=== PATIENT | male | born 1990 | race Caucasian/White ===

== ENCOUNTER 2019-07-04 02:19 | Emergency (ER) | payer SELFPAY ==
[2019-07-04 02:27] VITALS: BP 111/72; PULSE 54; RESP 12; TEMP 36.6; O2SAT 98
--- NOTE | 2019-07-04 02:30 | ED_ITS ---
Entered by Rere Byrne, acting as scribe for Lisa Mcknight MD HPI - Male Genitourinary General: Chief complaint: Urogenital-Male Stated complaint: BURNING DURING URINATION Time Seen by Provider: 07/04/19 02:30 Limitations: no limitations History of Present Illness: HPI Narrative: 29 yo m came to the er pov with family for pain with urination. Onset was today. Pt states that everytime when he goes to the bathroom it [place]. Complaint: other (pain with urination ) Onset (ago): day(s) Duration: constant Severity: mild Quality: burning Associated symptoms: Reports dysuria; Deny vomiting Related Data: Sexually active: Yes Review of Systems Const: Denies: fever or chills Eyes: Denies: change in vision ENMT: Denies: throat pain or mouth pain Card: Denies: chest pain Resp: Denies: shortness of breath GI: Denies: vomiting : Reports: painful urination Musc: Denies: back pain or joint pain Skin/Breast: Denies: rash Neuro: Denies: headache Psych: Denies: depression Endo: Denies: excessive urination Murray/Lymph: Denies: easy bruising All/Imm: Denies: hives PFSH ED PFSH: Statuses (acute, chronic, etc) shown below reflect problem list status as previously entered and may not be historically accurate Social History Smoking and tobacco status: never smoked Physical Exam Const: COMMON NORMALS: no apparent distress and healthy appearing HENMT: COMMON NORMALS: normocephalic and external nose normal HEAD & SCALP: normocephalic NOSE: external nose normal and no nasal discharge (nasal dis chage) Eye: COMMON NORMALS: PERRL PUPIL: Yes PERRL Neck/C-Spine: COMMON NORMALS: full ROM and no lymphadenopathy Chest: COMMONS NORMALS: inspection of chest normal Resp: COMMON NORMALS: normal respiratory effort and clear to auscultation bilaterally AUSCULTATION: clear to auscultation bilaterally Cardio: COMMON NORMALS: regular rate and regular rhythm RATE: regular rate RHYTHM: regular rhythm GI: COMMON NORMALS: soft to palpation PALPATION: Yes soft Extremity: COMMON NORMALS: normal to inspection, full ROM and normal capillary refill Psych: COMMON NORMALS: mental status grossly normal and cooperative Skin: COMMON NORMALS: no rashes or lesions noted GENERAL SKIN EXAM: no rashes or lesions noted Course Vital Signs: Vital signs: Vital Signs Temperature 97.9 F 07/04/19 02:27 Pulse Rate 54 L 07/04/19 02:27 Respiratory Rate 12 07/04/19 02:27 Blood Pressure 111/72 07/04/19 02:27 Pulse Oximetry 98 07/04/19 02:27 MDM - Male MDM Narrative: Medical decision making narrative: Patient presents here with dysuria. Patient has no abdominal pain and exam is benign. Patient's UA is clear but will treat with Rocephin and azithromycin for possible STD. Patient is to follow-up with primary care doctor in 3 to 5 days and return if worsening. Lab Data: Labs: Lab Results 07/04/19 Range/Units 02:42 Urine Color Yellow (Yellow) Urine Appearance Clear (CLEAR) Urine pH 5 (5-7) Ur Specific Gravit y 1.015 (1.005-1.030) Urine Protein Neg (Negative) Urine Glucose (UA) Norm (Normal) Urine Ketones Negative (Negative) Urine Occult Blood Neg (Negative) Urine Nitrate Negative (Negative) Urine Bilirubin Neg (NEGATIVE) Urine Urobilinogen Norm (Negative) mg/dL Ur Leukocyte Malissa ase Negative (Negative) Urine RBC 0-4 H (0-2) /hpf Urine WBC None (0-5) /hpf Ur Squamous Epith Cells None (0-5) Ur Transition Epit h Cell None /hpf Urine Bacteria None (NONE) Discharge Plan Discharge Patient Disposition: Home, Self-Care Clinical Impression: Dysuria Condition: Stable Prescriptions: No Action No Known Home Medications RF: 0 Discharge Orders: Discharge Order (Routine); Ordered 07/04/19 Ordered By: Lisa Mcknight Referrals: Carlton Salgado, NEONATAL NURSE-C [Family Provider] - 4-7 days Discharge Diet: Advance as tolerated Discharge Activity: Resume usual activity Patient Instructions: Dysuria (ED) Coding Level of Care Code ED Civil Cad Tech for Chg Fwd Exam Problem Focused The documentation recorded by the Chavez mary Stephanie Lyn, accurately reflects the service I personally performed and the decisions made by Roxanna gaitan Korby, MD Jul 04, 2019 02:19
--- NOTE | 2019-07-04 02:47 | PC.NURSE ---
Pt presents with pain during urination which has been getting progressively worse over the past 3-4 days. NAD, A&O x 4, JOSI.
[2019-07-04 03:07] LABS: Urine Appearance Clear (CLEAR); Urine Color Yellow (Yellow)
[2019-07-04 03:08] LABS: Bilirubin Urine Neg (NEGATIVE); Blood Urine Neg (Negative); Glucose Urine UA Norm (Normal); Ketones Urine Negative (Negative); Leukocyte Esterase Urine Negative (Negative); Nitrate Urine Negative (Negative); Protein Urine Neg (Negative); Specific Gravity, Urine 1.015 (1.005-1.030); Urobilinogen Urine Norm (Negative); pH Urine 5 (5-7)
[2019-07-04 03:09] LABS: Add Urine Culture? No; RBC Urine 0-4 /hpf (0-2)
[2019-07-04 03:51] VITALS: PULSE 56
== END 2019-07-04 03:55 | disposition home or self-care (01) ==
PROVIDERS: Emergency Provider Emergency Medicine; Family Provider Nurse Practitioner
DX: R30.0 Dysuria (principal)
CPT/HCPCS: 81001; 99282

== ENCOUNTER → 2019-07-11 15:48 | Outpatient (BNVA) | payer SELFPAY | PROVIDERS: Family Provider Nurse Practitioner; PCP Family Medicine; Visit Provider Family Medicine | DX: T73.2XXA Exhaustion due to exposure, initial encounter (principal); L60.0 Ingrowing nail | CPT/HCPCS: 84443; 85025; 86308 ==

== ENCOUNTER 2019-07-23 00:33 | Emergency (ER) | payer SELFPAY ==
[2019-07-23 00:41] VITALS: BP 105/63; PULSE 64; RESP 18; TEMP 36.8; O2SAT 98; BMI 27.4
--- NOTE | 2019-07-23 01:04 | XRR_ITS ---
PROCEDURE INFORMATION: Exam: XR Chest, 1 View Exam date and time: 07/23/2019 2:11 AM Age: 29 years old Clinical indication: Cough; Additional info: Patient recently diagnosed with ehrlichiosis, cold symptoms TECHNIQUE: Imaging protocol: XR of the chest Views: 1 view. COMPARISON: No relevant prior studies available. FINDINGS: Lungs: No acute airspace disease. Pleural space: No pleural effusion. Heart/Mediastinum: No cardiomegaly. Bones/joints: Unremarkable. XR/XR chest 1V portable 40024 IMPRESSION: No acute airspace or pleural disease.
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
[2019-07-23] MEDS: doxycycline 100 mg Tablet PO (01:31)
[2019-07-23 02:38] VITALS: PULSE 60; RESP 16; O2SAT 98
== END 2019-07-23 02:39 | disposition home or self-care (01) ==
PROVIDERS: Emergency Provider Nurse Practitioner Family; Family Provider Nurse Practitioner; PCP Family Medicine
DX: A77.40 Ehrlichiosis, unspecified (principal); F17.220 Nicotine dependence, chewing tobacco, uncomplicated
CPT/HCPCS: 71045; 99281

== ENCOUNTER 2019-08-29 13:12 | Emergency (ER) | payer SELFPAY ==
[2019-08-29 13:14] VITALS: BP 96/49; PULSE 56; RESP 16; TEMP 36.7; O2SAT 95; BMI 24.2
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
--- NOTE | 2019-08-29 13:27 | XR_ITS ---
WS: [id number] XR knee LT 3V* [id number] REASON FOR EXAM: trauma FINDINGS: The meniscal spaces are normal. The patella tibial space is normal. The patella femoral articulations normal. No fractures are noted. No excessive swelling. XR/XR knee LT 3V* [id number] IMPRESSION: Negative left knee.
[2019-08-29 13:31] VITALS: O2SAT 99
--- NOTE | 2019-08-29 13:35 | PC.NURSE ---
portable xray at bedside
[2019-08-29] MEDS: HYDROcodone-acetaminophen 5-325 mg Tablet 1 TAB PO (13:43)
--- NOTE | 2019-08-29 14:42 | PC.NURSE ---
pt c/o nausea earlier. nurse in room to administer zofran and pt now denies nausea. zofran not given. Pt does not appear to be in any pain at this time
[2019-08-29 14:43] VITALS: BP 85/60; PULSE 51; O2SAT 98
[2019-08-29 15:00] VITALS: BP 85/50; PULSE 48; O2SAT 98
== END 2019-08-29 15:00 | disposition home or self-care (01) ==
PROVIDERS: Emergency Provider Emergency Medicine; Family Provider Nurse Practitioner; PCP Family Medicine
DX: S29.012A Strain of muscle and tendon of back wall of thorax, initial encounter (principal); S80.02XA Contusion of left knee, initial encounter; F17.220 Nicotine dependence, chewing tobacco, uncomplicated; V49.50XA Passenger injured in collision with unspecified motor vehicles in traffic accident, initial encounter
CPT/HCPCS: 29530; 72128; 73562; 99282; 99283; L1830

== ENCOUNTER 2019-09-27 03:10 | Emergency (ER) | payer SELFPAY ==
[2019-09-27 03:16] VITALS: BP 103/64; PULSE 54; RESP 18; TEMP 36.8; O2SAT 100; BMI 24.2
--- NOTE | 2019-09-27 03:20 | W.ED.MALEGU ---
HPI - Male Genitourinary General: Chief complaint: Urogenital-Male Stated complaint: possible allergic reaction Time Seen by Provider: 09/27/19 03:14 History of Present Illness: HPI Narrative: Mr. Arreola is a 29-year-old male who comes in concerned with dysuria. He states his was recently treated for sexually transmitted disease and he was given a prescription for Flagyl to take but since taking Flagyl he still feels as though he has discomfort when he urinates. Tonight he had sex with his and had pain with ejaculation and intercourse. He states the pain is all on the tip of his penis. He initially had some clear discharge but denies any discharge presently. He denies any fevers, chills, nausea, vomiting, testicular pain, back pain, abdominal pain or otherwise. Associated symptoms: Reports dysuria; Deny hematuria, nausea, urinary incontinence or vomiting Review of Systems General: Reports: other (negative unless marked) Const: Denies: fever, chills, body aches, fatigue, malaise or diaphoresis Eyes: Denies: change in vision or blurry vision ENMT: Denies: throat pain, painful swallowing, hoarseness, ear pain, ear discharge, Change in hearing or nasal discharge Card: Denies: chest pain, palpitations, irregular heart rhythm, syncope, pre-syncope, shortness of breath on exertion or shortness of breath when lying down Resp: Denies: shortness of breath, productive cough, non-productive cough, wheezing, coughing up blood or chest congestion GI: Denies: abdominal pain, nausea, vomiting, vomiting blood, coffee grounds in vomit, diarrhea, constipation, cramping, blood in stool or black tarry stool : Reports: difficulty urinating, painful urination, urinary frequency and urinary urgency; Denies: flank pain, decreased urine ouput, urinary incontinence or blood in urine Musc: Denies: neck pain, back pain, extremity pain, extremity swelling, joint pain, joint swelling, joint warmth or joint stiffness Skin/Breast: Denies: rash, skin tenderness or yellow skin Neuro: Denies: headache, numbness in extremities, weakness in extremities, changes in sensation, lack of coordination, difficulty walking, dizziness, vertigo or confusion Endo: Denies: excessive thirst, tired all the time, cold intolerance, excessive sweating, flushing or hot flashes Murray/Lymph: Denies: easy bruising, easy bleeding, petechiae or enlarged lymph nodes All/Imm: Denies: hives, throat swelling, tongue swelling, facial swelling or acute wheezing PFSH ED PFSH: Social History Smoking and tobacco status: never smoked Quit status (tobacco): not considering quitting Second hand smoke exposure: No Smoking risk assessment/counseling performed?: No Alcohol intake: current Alcohol intake frequency: holidays/special occasions only Desire information about alcohol rehabilitation?: No Counseling given: No Household members: spouse Marital status: Current occupational status: other Details: WAS INCARCERATED IN 2017 Current gender identity: Male Physical Exam Const: COMMON NORMALS: no apparent distress, oriented x3, no limitations, healthy appearing and well nourished EXAM LIMITATIONS: no altered mental status GENERAL APPEARANCE: cooperative, well kempt and well developed ORIENTATION/CONSCIOUSNESS: Yes awake HENMT: COMMON NORMALS: normocephalic, head/scalp atraumatic, hearing grossly normal bilaterally, external ears normal, EAC's normal, external nose normal and moist oral mucous membranes HEAD & SCALP: normal to inspection, normocephalic and atraumatic FACE & SINUS: normal facial exam and face symmetric NOSE: external nose normal and nares normal EXTERNAL EAR: Yes external ears normal EXTERNAL AUDITORY CANAL: EAC's normal MOUTH: oral and palatal mucosa normal and tongue normal Eye: COMMON NORMALS: PERRL, EOMs intact bilaterally, conjunctivae normal and no scleral icterus GENERAL EYE: normal appearance of both eyes and normal light reflex CONJUNCTIVA: Yes conjunctivae normal SCLERA: sclerae normal CORNEA: Yes corneas normal PUPIL: Yes PERRL DIRECT OPHTHALMOSCOPY: Yes normal light reflex Neck/C-Spine: COMMON NORMALS: full ROM, no lymphadenopathy, supple, no meningeal signs and no JVD GENERAL: Yes normal visual inspection and Yes trachea midline CERVICAL SPINE: Yes cervical ROM normal Chest: COMMONS NORMALS: inspection of chest normal and palpation of chest normal Resp: COMMON NORMALS: normal respiratory effort, no retractions, no use of accessory muscles and clear to auscultation bilaterally EFFORT & INSPECTION: Yes able to speak in complete sentences AUSCULTATION: clear to auscultation bilaterally Cardio: COMMON NORMALS: no JVD, regular rate, regular rhythm, S1 normal heart sound, S2 normal heart sound, no gallops, no clicks, no murmurs and no rub JUGULAR VENOUS DISTENTION: no JVD RATE: regular rate RHYTHM: regular rhythm HEART SOUNDS: S1 normal and S2 normal GI: COMMON NORMALS: soft to palpation, non-tender, no hepatosplenomegaly and no masses INSPECTION: Yes normal to inspection PALPATION: Yes soft and Yes no hepatosplenomegaly : COMMON NORMALS: Yes no CVA tenderness BLADDER/KIDNEY EXAM: Yes no CVA tenderness PENIS: normal penis, circumcised, no paraphimosis, no phimosis, no swelling and no ulcerations MEATUS: meatus normal SCROTUM: Yes testes descended bilaterally, Yes cremasteric reflex present, No scrotal swelling, No lesions and No scrotal mass TESTES: Yes testicular lie normal, No testicular tenderness and No testicular mass Back/Pelvis: COMMON NORMALS: no CVA tenderness, thoracic and lumbar spine normal to inspection, no thoracic nor lumbar tenderness and thoraco-lumbar ROM normal Extremity: COMMON NORMALS: normal to inspection, full ROM, normal capillary refill, no joint enlargement, no clubbing, cyanosis or edema and no calf tenderness Neuro: COMMON NORMALS: oriented x3, CN's II-XII intact bilaterally, moves all extremities, no focal motor deficits and no sensory deficits noted MENINGEAL SIGNS: Yes no meningeal signs Psych: COMMON NORMALS: mental status grossly normal, thought process normal, cooperative, affect normal, speech normal and activity/motor behavior normal APPEARANCE: Yes well kempt SPEECH: Yes normal speech THOUGHT PROCESS: normal thought process Skin: COMMON NORMALS: no rashes or lesions noted, skin turgor normal, no jaundice, no petechiae and no mottling GENERAL SKIN EXAM: no rashes or lesions noted and turgor normal Course Vital Signs: Vital signs: Vital Signs Temperature 98.3 F 09/27/19 03:16 Pulse Rate 54 L 09/27/19 03:16 Respiratory Rate 18 09/27/19 03:16 Blood Pressure 103/64 09/27/19 03:16 Pulse Oximetry 100 09/27/19 03:16 MDM - Male MDM Narrative: Medical decision making narrative: Silviano is a nice 29-year-old male who comes in with probable STD exposure. I will treat him. We for gonorrhea and chlamydia and it sounds that he has been treated empirically for trichomonas. The patient will be called if he has a positive test. Currently these are all send outs will take a day to get results for. He agrees to return should his symptoms change or worsen. At this time he has no abdominal pain or vomiting. Lab Data: Attestation: I reviewed the patient's lab results. Labs: Lab Results 09/27/19 09/27/19 09/27/19 Range/Units 03:30 03:30 03:45 WBC 7.3 (4.0-10.0) 10^3/ uL RBC 4.14 (4.1-5.3) 10^6/u L Hgb 11.9 (11.7-16.6) g/dL Hct 37.4 L (42.0-52.0) % MCV 90.3 (80-94) fL MCH 28.7 (28.0-34.0) pg MCHC 31.8 (30.0-36.0) g/dL RDW 13.6 (12.1-15.1) % Plt Count 353 (130-400) 10^3/c mm MPV 10.5 H (7.4-10.4) fL Neut % (Auto) 57.8 % Lymph % (Auto) 33.7 % [place] % (Auto) 6.8 % Eos % (Auto) 1.2 % Baso % (Auto) 0.4 % Neut # (Auto) 4.2 (1.8-7.7) 10^3/u L Lymph # (Auto) 2.5 (0.8-4.8) 10^3/u L [place] # (Auto) 0.5 (0.2-0.9) 10^3/u L Eos # (Auto) 0.1 (0.0-0.8) 10^3/u L Baso # (Auto) 0.0 (0.0-0.1) 10^3/u L Nucleated RBC % (a uto) 0 % Nucleated RBCs # 0.0 /100WBC Sodium 141 (136-145) mmol/L Potassium 4.1 (3.5-5.1) mmol/L Chloride 105 (98-107) mmol/L Carbon Dioxide 27 (22-29) mmol/L Anion Gap 13.1 (5-19) BUN 11 (6-20) mg/dL Creatinine 0.8 (0.7-1.2) mg/dL GFR Calculation 116.0 (90-130) mL/min Glucose 93 (65-115) mg/dL Calculated Osmolal ity 288 (285-295) mOsm/k g Calcium 9.9 (8.5-10.5) mg/dL Total Bilirubin 0.5 (0.15-1.2) mg/dL AST 21 (0-40) U/L ALT 20 (0-41) U/L Alkaline Phosphata se 108 (40-130) IU/L Total Protein 7.4 (6.6-8.7) g/dL Albumin 4.5 (3.5-5.2) g/dL Globulin 2.9 (1.3-4.6) g/dL Urine Color Yellow (Yellow) Urine Appearance Hazy A (CLEAR) Urine pH 7 (5-7) Ur Specific Gravit y 1.015 (1.005-1.030) Urine Protein Neg (Negative) Urine Glucose (UA) Norm (Normal) Urine Ketones Negative (Negative) Urine Blood Neg (Negative) Urine Nitrate Negative (Negative) Urine Bilirubin Neg (NEGATIVE) Urine Urobilinogen 1 H (Negative) mg/dL Ur Leukocyte Malissa ase Negative (Negative) Urine RBC 0-4 H (0-2) /hpf Urine WBC None (0-5) /hpf Ur Squamous Epith Cells 0-4 H (0-5) Amorphous Sediment 1+ Urine Bacteria Trace (NONE) Discharge Plan Discharge Patient Disposition: Home, Self-Care Clinical Impression: Dysuria Condition: Stable Discharge Orders: Discharge Order (Routine); Ordered 09/27/19 Ordered By: Reyna Rodas Referrals: Carlton Salgado FNP-C [Family Provider] - 1-3 days Mercedes Thrasher MD [Primary Care Provider] - Discharge Diet: Advance as tolerated Discharge Activity: Increase activity as tolerated Patient Instructions: Sexually Transmitted Diseases (ED) Activity Restrictions/Additional Instructions: Please return to the ER immediately for any of the signs or symptoms listed on your discharge instruction sheets, worsening/changing of your symptoms, you are not getting better as quickly as expected, or for ANY other cause or concerns. You will be notified by phone if any of your test results are positive. Coding Level of Care Code ED Trauma Program Manager for Chg Fwd Exam Comprehensive
[2019-09-27 03:54] LABS: Alanine Aminotransferase 20 U/L (0-41); Albumin Level 4.5 g/dL (3.5-5.2); Alkaline Phosphatase 108 IU/L (40-130); Anion Gap 13.1 (5-19); Aspartate Amino Transferase 21 U/L (0-40); Blood Urea Nitrogen 11 mg/dL (6-20); Calcium 9.9 mg/dL (8.5-10.5); Carbon Dioxide 27 mmol/L (22-29); Chloride 105 mmol/L (98-107); Globulin 2.9 g/dL (1.3-4.6); Glucose 93 mg/dL (65-115); Osmolality Calculated 288 mOsm/kg (285-295); Potassium 4.1 mmol/L (3.5-5.1); Sodium 141 mmol/L (136-145); Total Bilirubin 0.5 mg/dL (0.15-1.2); Total Protein 7.4 g/dL (6.6-8.7)
[2019-09-27 04:09] LABS: Basophils % 0.4 %; Eosinophils # 0.1 10^3/uL (0.0-0.8); Eosinophils % 1.2 %; Hematocrit 37.4 % (42.0-52.0); Hemoglobin 11.9 g/dL (11.7-16.6); Lymphocytes # 2.5 10^3/uL (0.8-4.8); Lymphocytes % 33.7 %; Mean Corpuscular HGB Conc 31.8 g/dL (30.0-36.0); Mean Corpuscular Hemoglobin 28.7 pg (28.0-34.0); Mean Corpuscular Volume 90.3 fL (80-94); Mean Platelet Volume 10.5 fL (7.4-10.4); Monocytes # 0.5 10^3/uL (0.2-0.9); Monocytes % 6.8 %; Neutrophils # 4.2 10^3/uL (1.8-7.7); Neutrophils % 57.8 %; Nucleated Red Blood Cells % 0 %; Platelet Count 353 10^3/cmm (130-400); Red Blood Count 4.14 10^6/uL (4.1-5.3); Red Cell Distribution Width 13.6 % (12.1-15.1); White Blood Count 7.3 10^3/uL (4.0-10.0)
[2019-09-27 04:12] LABS: Bilirubin Urine Neg (NEGATIVE); Blood Urine Neg (Negative); Glucose Urine UA Norm (Normal); Ketones Urine Negative (Negative); Leukocyte Esterase Urine Negative (Negative); Nitrate Urine Negative (Negative); Protein Urine Neg (Negative); Specific Gravity, Urine 1.015 (1.005-1.030); Urine Appearance Hazy (CLEAR); Urine Color Yellow (Yellow); Urobilinogen Urine 1 mg/dL (Negative); pH Urine 7 (5-7)
[2019-09-27 04:13] LABS: Amorphous Sediment Urine 1+
[2019-09-27 04:14] LABS: Add Urine Culture? No; Bacteria Urine TRACE; RBC Urine 0-4 /hpf (0-2); Squamous Epithelial Cell Urine 0-4 (0-5)
--- NOTE | 2019-09-27 05:32 | PC.NURSE ---
went to d/c pt and give injections and pt could not be found anywhere on property. pt left without all his treatments and without d/c instructions.
== END 2019-09-27 05:37 | disposition home or self-care (01) ==
PROVIDERS: Emergency Provider Emergency Medicine; Family Provider Nurse Practitioner; PCP Family Medicine
DX: R30.0 Dysuria (principal); Z20.2 Contact with and (suspected) exposure to infections with a predominantly sexual mode of transmission
CPT/HCPCS: 12345; 36415; 80053; 81001; 85025; 87491; 87591; 99282

== ENCOUNTER 2019-10-08 08:27 | Emergency (ER) | payer SELFPAY ==
[2019-10-08 08:32] VITALS: BP 105/58; PULSE 67; RESP 17; TEMP 36.6; O2SAT 97; BMI 25.0
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
[2019-10-08 09:15] VITALS: BP 104/60; PULSE 67; RESP 18; O2SAT 67
== END 2019-10-08 09:17 | disposition home or self-care (01) ==
PROVIDERS: Emergency Provider Physician Assistant; Family Provider Nurse Practitioner; PCP Family Medicine
DX: M25.562 Pain in left knee (principal)
CPT/HCPCS: 12345; 99281; 99283

== ENCOUNTER 2019-10-11 00:09 | Emergency (ER) | payer SELFPAY ==
[2019-10-11 00:10] VITALS: BP 100/73; PULSE 68; RESP 14; TEMP 36.8; O2SAT 98; BMI 28.3
--- NOTE | 2019-10-11 00:13 | W.ED.OVERDOS ---
HPI - Overdose General: Chief Complaint: Overdose Stated Complaint: POSSIBLE OD Time Seen by Provider: 10/11/19 00:11 Source: patient and EMS Mode of arrival: EMS Limitations: no limitations History of Present Illness: HPI Narrative: Patient's called EMS because she is concerned he may of overdose. Patient taken to 20 mg trazodone tablets tonight to help him sleep and also took he states 1-2 Flexeril. She was concerned as he was very somnolent. Patient here is able to wake up and answer all my questions appropriately but states he feels very tired. He has no other complaints besides that at this time. Review of Systems Const: Denies: fever, chills, body aches or change in appetite Eyes: Denies: blurry vision or eye discomfort ENMT: Denies: throat pain or dental pain Card: Denies: chest pain Resp: Denies: shortness of breath GI: Denies: abdominal pain, nausea, vomiting or diarrhea : Denies: painful urination Musc: Denies: neck pain or back pain Skin/Breast: Denies: rash Neuro: Denies: headache Psych: Denies: depression Murray/Lymph: Denies: easy bruising All/Imm: Denies: hives PFSH ED PFSH: Social History Smoking and tobacco status: never smoked Quit status (tobacco): not considering quitting Second hand smoke exposure: No Smoking risk assessment/counseling performed?: No Alcohol intake: current Alcohol intake frequency: holidays/special occasions only Desire information about alcohol rehabilitation?: No Counseling given: No Household members: spouse Marital status: Current occupational status: other Details: WAS INCARCERATED IN 2017 Current gender identity: Male Physical Exam Const: COMMON NORMALS: no apparent distress, oriented x3 and healthy appearing HENMT: COMMON NORMALS: normocephalic and head/scalp atraumatic HEAD & SCALP: normocephalic and atraumatic Eye: COMMON NORMALS: PERRL and EOMs intact bilaterally PUPIL: Yes PERRL Neck/C-Spine: COMMON NORMALS: full ROM and supple Chest: COMMONS NORMALS: inspection of chest normal and palpation of chest normal Resp: COMMON NORMALS: normal respiratory effort, no retractions, no use of accessory muscles and clear to auscultation bilaterally AUSCULTATION: clear to auscultation bilaterally Cardio: COMMON NORMALS: regular rate, regular rhythm and no murmurs RATE: regular rate RHYTHM: regular rhythm GI: COMMON NORMALS: normal to inspection, nondistended, normoactive bowel sounds, soft to palpation, non-tender and no masses PALPATION: Yes soft Extremity: COMMON NORMALS: normal to inspection and full ROM Neuro: COMMON NORMALS: oriented x3, moves all extremities and no focal motor deficits Psych: COMMON NORMALS: mental status grossly normal, thought process normal and cooperative THOUGHT PROCESS: normal thought process Skin: COMMON NORMALS: no rashes or lesions noted and no wounds GENERAL SKIN EXAM: no rashes or lesions noted Course Vital Signs: Vital signs: Vital Signs Temperature 98.2 F 10/11/19 00:10 Pulse Rate 68 10/11/19 00:10 Respiratory Rate 14 10/11/19 00:10 Blood Pressure 100/73 10/11/19 00:10 Pulse Oximetry 98 10/11/19 00:10 MDM - Overdose MDM Narrative: Medical decision making narrative: Patient presents with an accidental overdose. He had no suicidal ideations and was just trying to take medicine for pain for his knee. Patient eloped and nurse noticed when he had went back to do the EKG. I was unable to speak to the patient before he eloped. Patient's was in the driveway and nurses spoke to her and she was driving back home with him. Nurse did inform her if he has any worsening symptoms to return. Lab Data: Labs: Lab Results 10/11/19 10/11/19 Range/Units 00: 00:20 WBC 5.9 (4.0-10.0) 10^3/ uL RBC 4.11 (4.1-5.3) 10^6/u L Hgb 11.8 (11.7-16.6) g/dL Hct 37.4 L (42.0-52.0) % MCV 91.0 (80-94) fL MCH 28.7 (28.0-34.0) pg MCHC 31.6 (30.0-36.0) g/dL RDW 13.5 (12.1-15.1) % Plt Count 266 (130-400) 10^3/c mm MPV 10.4 (7.4-10.4) fL Neut % (Auto) 63.9 % Lymph % (Auto) 28.8 % [place] % (Auto) 4.9 % Eos % (Auto) 2.0 % Baso % (Auto) 0.2 % Neut # (Auto) 3.8 (1.8-7.7) 10^3/u L Lymph # (Auto) 1.7 (0.8-4.8) 10^3/u L [place] # (Auto) 0.3 (0.2-0.9) 10^3/u L Eos # (Auto) 0.1 (0.0-0.8) 10^3/u L Baso # (Auto) 0.0 (0.0-0.1) 10^3/u L Nucleated RBC % (a uto) 0 % Nucleated RBCs # 0.0 /100WBC Sodium 140 (136-145) mmol/L Potassium 4.2 (3.5-5.1) mmol/L Chloride 102 (98-107) mmol/L Carbon Dioxide 27 (22-29) mmol/L Anion Gap 15.2 (5-19) BUN 12 (6-20) mg/dL Creatinine 0.8 (0.7-1.2) mg/dL GFR Calculation 116.0 (90-130) mL/min Glucose 87 (65-115) mg/dL Calculated Osmolal ity 285 (285-295) mOsm/k g Calcium 9.5 (8.5-10.5) mg/dL Total Bilirubin 0.5 (0.15-1.2) mg/dL AST 18 (0-40) U/L ALT 14 (0-41) U/L Alkaline Phosphata se 93 (40-130) IU/L Total Protein 7.0 (6.6-8.7) g/dL Albumin 4.1 (3.5-5.2) g/dL Globulin 2.9 (1.3-4.6) g/dL Salicylates 1.0 L (3-10) mg/dL Acetaminophen < 5.0 L (10-30) ug/mL Ethyl Alcohol < 10 (0-10) mg/dL Discharge Plan Discharge Patient Disposition: Home, Self-Care Clinical Impression: Drug overdose Qualifiers: Encounter type: initial encounter Injury intent: accidental or unintentional Qualified Code(s): T50.901A - Poisoning by unspecified drugs, medicaments and biological substances, accidental (unintentional), initial encounter Condition: Stable Referrals: Carlton Salgado, AGRICULTURAL EQUIPMENT DESIGN ENGINEER-C [Family Provider] - Mercedes Thrasher MD [Primary Care Provider] - Discharge Date/Time: 10/11/19 01:09 Coding Level of Care Code ED Podiatrist for Chg Fwd Exam Comprehensive
[2019-10-11 00:29] LABS: Basophils % 0.2 %; Eosinophils # 0.1 10^3/uL (0.0-0.8); Hematocrit 37.4 % (42.0-52.0); Hemoglobin 11.8 g/dL (11.7-16.6); Lymphocytes # 1.7 10^3/uL (0.8-4.8); Lymphocytes % 28.8 %; Mean Corpuscular HGB Conc 31.6 g/dL (30.0-36.0); Mean Corpuscular Hemoglobin 28.7 pg (28.0-34.0); Mean Platelet Volume 10.4 fL (7.4-10.4); Monocytes # 0.3 10^3/uL (0.2-0.9); Monocytes % 4.9 %; Neutrophils # 3.8 10^3/uL (1.8-7.7); Neutrophils % 63.9 %; Nucleated Red Blood Cells % 0 %; Platelet Count 266 10^3/cmm (130-400); Red Blood Count 4.11 10^6/uL (4.1-5.3); Red Cell Distribution Width 13.5 % (12.1-15.1); White Blood Count 5.9 10^3/uL (4.0-10.0)
[2019-10-11 00:43] LABS: Alanine Aminotransferase 14 U/L (0-41); Albumin Level 4.1 g/dL (3.5-5.2); Alkaline Phosphatase 93 IU/L (40-130); Anion Gap 15.2 (5-19); Aspartate Amino Transferase 18 U/L (0-40); Blood Urea Nitrogen 12 mg/dL (6-20); Calcium 9.5 mg/dL (8.5-10.5); Carbon Dioxide 27 mmol/L (22-29); Chloride 102 mmol/L (98-107); Globulin 2.9 g/dL (1.3-4.6); Glucose 87 mg/dL (65-115); Osmolality Calculated 285 mOsm/kg (285-295); Potassium 4.2 mmol/L (3.5-5.1); Sodium 140 mmol/L (136-145); Total Bilirubin 0.5 mg/dL (0.15-1.2)
[2019-10-11 00:44] LABS: Acetaminophen < 5.0 ug/mL (10-30); Alcohol Level < 10 mg/dL (0-10)
[2019-10-11] MEDS: sodium chloride 0.9% 1,000 ML 999 ML IV (00:48)
--- NOTE | 2019-10-12 14:23 | DCPLANNER ---
grounds manager called patient to check on patient after recent ER visit. Unable to speak with patient at this time, a voicemail was left for patient to return pillowcase maker phone call.
== END 2019-10-11 01:09 | disposition home or self-care (01) ==
PROVIDERS: Emergency Provider Emergency Medicine; Family Provider Nurse Practitioner; PCP Family Medicine
DX: T43.211A Poisoning by selective serotonin and norepinephrine reuptake inhibitors, accidental (unintentional), initial encounter (principal); T48.1X1A Poisoning by skeletal muscle relaxants [neuromuscular blocking agents], accidental (unintentional), initial encounter; Z53.21 Procedure and treatment not carried out due to patient leaving prior to being seen by health care provider
CPT/HCPCS: 12345; 80053; 80307; 85025; 96360; 99282; 99283; J7030

== ENCOUNTER 2019-12-07 23:09 | Emergency (ER) | payer SELFPAY ==
[2019-12-07 23:20] VITALS: BP 101/64; PULSE 65; RESP 14; TEMP 36.6; O2SAT 99; BMI 22.8
== END 2019-12-08 00:21 | disposition left against medical advice (07) ==
PROVIDERS: Emergency Provider Emergency Medicine; PCP Family Medicine
DX: Z53.21 Procedure and treatment not carried out due to patient leaving prior to being seen by health care provider (principal)
CPT/HCPCS: 99281

== ENCOUNTER 2020-01-27 21:39 | Emergency (ER) | payer SELFPAY ==
[2020-01-27 21:43] VITALS: BP 94/56; PULSE 70; RESP 17; TEMP 36.5; O2SAT 99; BMI 23.1
--- NOTE | 2020-01-27 21:51 | ED_ITS ---
HPI - Allergic Reaction General: Chief complaint: Allergic Reaction Stated complaint: facial swelling Time Seen by Provider: 01/27/20 21:51 History of Present Illness: HPI narrative: Patient is a 29-year-old male who comes to the ED with facial swelling. Patient says that yesterday he ate some peanut butter and today when he woke up he had right-sided facial swelling. He has taken 2 doses of Benadryl today to help with swelling and no improvement. Swelling is located in the right maxillary region of the jaw and tender to palpation. Associated symptoms: Reports facial swelling (right sided facial swelling); Deny abdominal pain, nausea, tongue swelling or vomiting Review of Systems Const: Denies: fever(s), chills or fatigue Eyes: Denies: change in vision or eye discomfort ENMT: Reports: mouth pain (right maxillary jaw tenderness ); Denies: throat pain, odynophagia, nasal discharge or nasal congestion Card: Denies: chest pain, palpitations, edema, swelling of feet/ankles, dyspnea on exertion or orthopnea Resp: Denies: dyspnea, productive cough or non-productive cough GI: Denies: abdominal pain, nausea, vomiting, diarrhea, constipation or hematochezia : Denies: flank pain, difficulty urinating, dysuria or hematuria Musc: Denies: neck pain, back pain or extremity swelling Skin/Breast: Denies: rash or new lesions Neuro: Denies: headache(s), numbness in extremities or weakness in extremities All/Imm: Reports: facial swelling (right sided facial swelling); Denies: throat swelling, tongue swelling or acute wheezing PFSH ED PFSH: Social History Smoking and tobacco status: light tobacco smoker smokeless tobacco Smokeless tobacco user: chewing tobacco Quit status (tobacco): not considering quitting Second hand smoke exposure: No Smoking risk assessment/counseling performed?: No Alcohol intake: current Alcohol intake frequency: holidays/special occasions only Desire information about alcohol rehabilitation?: No Counseling given: No Household members: spouse Marital status: Current occupational status: other Details: WAS INCARCERATED IN 2017 Current gender identity: Male Physical Exam Const: COMMON NORMALS: patient oriented x3 HENMT: COMMON NORMALS: normocephalic HEAD & SCALP: normocephalic FACE & SINUS: Facial tenderness on exam of face and sinuses on the right (Patient has swelling on right maxillary jaw region with warmth and tenderness to palpation.) maxilla (Right side) MOUTH: Normal oral and palatal mucosa present TEETH & GINGIVA: Yes caries, Yes gingiva abnormal edematous (right upper maxillary jaw around teeth 1-3) and diffusely erythematous (right upper maxillary jaw around teeth 1-3) and Yes poor dentition THROAT: posterior oropharynx normal and uvula midline Neck/C-Spine: COMMON NORMALS: supple GENERAL: Yes normal visual inspection Resp: COMMON NORMALS: normal respiratory effort, No retractions, No use of accessory muscles and clear to auscultation bilaterally AUSCULTATION: clear to auscultation bilaterally Cardio: COMMON NORMALS: regular rate, regular rhythm, S1 normal heart sound present, S2 normal heart sound present, No gallops present (Cardio), No clicks present (Cardio), No murmurs present (Cardio) and Peripheral pulses 2+ throughout RATE: regular rate RHYTHM: regular rhythm HEART SOUNDS: S1 normal heart sound present and S2 normal heart sound present PERIPHERAL PULSES: Peripheral pulses 2+ throughout GI: COMMON NORMALS: Normal to inspection, nondistended, normoactive bowel sounds present, Soft to palpation, non-tender and no masses PALPATION: Yes Soft to palpation : COMMON NORMALS: Yes no CVA tenderness BLADDER/KIDNEY EXAM: Yes no CVA tenderness Back/Pelvis: COMMON NORMALS: no CVA tenderness Extremity: COMMON NORMALS: normal to inspection Neuro: COMMON NORMALS: patient oriented x3 and moves all extremities Skin: COMMON NORMALS: no rashes or lesions noted GENERAL SKIN EXAM: no mauro hes or lesions noted and dry skin Course Vital Signs: Vital signs: Vital Signs Temperature 97.7 F 01/27/20 21:43 Pulse Rate 54 L 01/27/20 22:25 Respiratory Rate 16 01/27/20 22:25 Blood Pressure 103/42 01/27/20 22:25 Pulse Oximetry 99 01/27/20 22:25 MDM - Allergic Reaction MDM Narrative: Medical decision making narrative: Patient is a 29-year-old male who comes to the ED with right maxillary face swelling and tenderness. Denies any shortness of breath, throat swelling, tongue swelling. Exam shows multiple dental caries and upper right maxillary gingival edema and erythema. patient was given a prescription of prednisone to help with the swelling and clindamycin for the infection. Follow-up with PCP in 5 to 7 days for reevalu ation. Return to ED precautions given. Patient understood and agreed with plan. Discharge Plan Discharge Patient Disposition: Home Clinical Impression: Mouth swelling, Dental caries Condition: Stable Prescriptions: New clindamycin HCl 150 mg capsule 300 mg PO Q6H 7 Days Qty: 56 RF: 0 prednisone 20 mg tablet 20 mg PO BID 5 Days Qty: 10 RF: 0 No Action No Known Home Medications RF: 0 Discharge Orders: Discharge Order (Routine); Ordered 01/27/20 Ordered By: Haja Martínez Discharge Diet: Regular Discharge Activity: Resume usual activity Patient Instructions: Dental Caries (ED) Activity Restrictions/Additional Instructions: Follow-up with medical provider as directed in 5-7 days. Take medications as prescribed. Return to the ER or your medical provider if condition worsens. Please read and understand discharge instructions. If any questions, please ask. Discharge Date/Time: 01/27/20 22:30 Coding Level of Care Code ED Sales Developer for Aman Siddiqi Exam Comprehensive
[2020-01-27] MEDS: predniSONE 20 mg Tablet 60 MG PO (22:22)
[2020-01-27] MEDS: clindamycin 150 mg Capsule 300 MG PO (22:22)
[2020-01-27 22:25] VITALS: BP 103/42; PULSE 54; RESP 16; O2SAT 99
== END 2020-01-27 22:30 | disposition home or self-care (01) ==
PROVIDERS: Emergency Provider Physician Assistant
DX: K02.9 Dental caries, unspecified (principal); F17.210 Nicotine dependence, cigarettes, uncomplicated
CPT/HCPCS: 12345; 99281; 99283; J7512

== ENCOUNTER 2020-04-19 01:12 | Emergency (ER) | payer SELFPAY ==
[2020-04-19 01:19] VITALS: BP 90/56; PULSE 52; RESP 17; TEMP 36.4; O2SAT 99; BMI 23.8
--- NOTE | 2020-04-19 01:26 | XRR_ITS ---
PROCEDURE INFORMATION: Exam: XR Chest, 1 View Exam date and time: 04/19/2020 1:44 AM Age: 30 years old Clinical indication: Cough; Additional info: Cough, sore throat TECHNIQUE: Imaging protocol: XR of the chest Views: 1 view. COMPARISON: CR XR chest 1V portable [id number] 07/23/2019 2:01 AM FINDINGS: Lungs: Unremarkable. No consolidation. Pleural space: Unremarkable. No pleural effusion. No pneumothorax. Heart/Mediastinum: Unremarkable. No cardiomegaly. Bones/joints: Unremarkable. XR/XR chest 1V portable [id number] IMPRESSION: No acute findings.
--- NOTE | 2020-04-19 01:30 | ED_ITS ---
HPI - General Adult General: Chief complaint: General Medical Stated complaint: cough/sore throat Time Seen by Provider: 04/19/20 01:27 Source: patient Mode of arrival: ambulatory Limitations: no limitations History of Present Illness: HPI narrative: 30-year-old male who states that over the last 3 days has had sore throat along with cough. States throat pain is sharp in nature and is worse when he is coughing. States his cough is dry in nature. Denies any fever shortness of breath. Denies any worsening or improving factors. He is nasal drainage as well and sinus drainage. Denies any known sick contacts. Associated symptoms: Deny chest pain, headache(s), nausea, rash or vomiting Review of Systems Const: Denies: fever(s), chills, body aches or change in appetite Eyes: Denies: blurry vision or eye discomfort ENMT: Reports: throat pain Card: Denies: chest pain Resp: Reports: non-productive cough GI: Denies: abdominal pain, nausea, vomiting or diarrhea : Denies: dysuria Musc: Denies: neck pain or back pain Skin/Breast: Denies: rash Neuro: Denies: headache(s) Psych: Denies: depression Murray/Lymph: Denies: easy bruising All/Imm: Denies: urticaria PFSH ED PFSH: Social History Smoking and tobacco status: light tobacco smoker smokeless tobacco Smokeless tobacco user: chewing tobacco Quit status (tobacco): not considering quitting Second hand smoke exposure: No Smoking risk assessment/counseling performed?: No Alcohol intake: current Alcohol intake frequency: holidays/special occasions only Desire information about alcohol rehabilitation?: No Counseling given: No Household members: spouse Marital status: Current occupational status: other Details: WAS INCARCERATED IN 2017 Current gender identity: Male Physical Exam Const: COMMON NORMALS: no acute distress, patient oriented x3 and healthy appearing HENMT: COMMON NORMALS: normocephalic and atraumatic HEAD & SCALP: normocephalic and atraumatic Eye: COMMON NORMALS: Equal, round and reactive pupils present and EOMs intact bilaterally PUPIL: Yes Equal, round and reactive pupils present Neck/C-Spine: COMMON NORMALS: full ROM and supple Chest: COMMONS NORMALS: normal inspection of the chest and normal palpation of entire chest wall Resp: COMMON NORMALS: normal respiratory effort, No retractions, No use of accessory muscles and clear to auscultation bilaterally AUSCULTATION: clear to auscultation bilaterally Cardio: COMMON NORMALS: regular rate, regular rhythm and No murmurs present (Cardio) RATE: regular rate RHYTHM: regular rhythm GI: COMMON NORMALS: Normal to inspection, nondistended, normoactive bowel sounds present, Soft to palpation, non-tender and no masses PALPATION: Yes Soft to palpation Extremity: COMMON NORMALS: normal to inspection and full ROM Neuro: COMMON NORMALS: patient oriented x3, moves all extremities and no focal motor deficits Psych: COMMON NORMALS: mental status grossly normal, Normal thought process present and cooperative THOUGHT PROCESS: Normal thought process present Skin: COMMON NORMALS: no rashes or lesions noted and no wounds GENERAL SKIN EXAM: no rashes or lesions noted Course Vital Signs: Vital signs: Vital Signs Temperature 97.6 F 04/19/20 01:19 Pulse Rate 52 L 04/19/20 01:19 Respiratory Rate 17 04/19/20 01:19 Blood Pressure 90/56 04/19/20 01:19 Pulse Oximetry 99 04/19/20 01:19 MDM - General Adult MDM Narrative: Medical decision making narrative: Tanna presents with cough along with sore throat is likely viral in origin. His exam here is benign he has no signs of strep throat or peritonsillar or retropharyngeal abscess. Patient chest x-ray is negative. Patient given Decadron here will prescribe Naprosyn for home. He is stable for discharge. We will test him for Covid as well. Imaging Data^: CXR: Attestation: I personally reviewed and interpreted this imaging study as follows: My impression: no acute abnormality Discharge Plan Discharge Patient Disposition: Home Clinical Impression: Sore throat Upper respiratory infection Qualifiers: URI type: unspecified URI Qualified Code(s): J06.9 - Acute upper respiratory infection, unspecified Condition: Stable Prescriptions: No Action No Known Home Medications RF: 0 Discharge Orders: Discharge Order (Routine); Ordered 04/19/20 Ordered By: Lisa Mcknight Discharge Diet: Advance as tolerated Discharge Activity: Resume usual activity Patient Instructions: Strep Throat (ED) Coding Level of Care Code ED Cooker Chip for Chg Fwd Exam Comprehensive
[2020-04-19] MEDS: ketorolac 60 mg/2 mL INJ IM (02:17)
[2020-04-19] MEDS: dexamethasone 10 mg/mL INJ IM (02:17)
[2020-04-19 02:18] VITALS: BP 136/82; PULSE 76; RESP 16; O2SAT 99
[2020-04-20 18:53] LABS: Quest SARS-CoV-2 RNA NOT DETECTED (NOT DETECTED)
--- NOTE | 2020-04-21 09:07 | PC.NURSE ---
Pt called and notified of negative COVID result.
== END 2020-04-19 02:19 | disposition home or self-care (01) ==
PROVIDERS: Emergency Provider Emergency Medicine
DX: J06.9 Acute upper respiratory infection, unspecified (principal); J02.9 Acute pharyngitis, unspecified; F17.220 Nicotine dependence, chewing tobacco, uncomplicated
CPT/HCPCS: 12345; 71045; 87635; 96372; 99281; 99283; J1100; J1885

== ENCOUNTER 2020-04-29 21:08 | Emergency (ER) | payer SELFPAY ==
[2020-04-29 21:22] VITALS: BP 98/63; PULSE 55; RESP 18; TEMP 36.5; O2SAT 99; BMI 23.4
--- NOTE | 2020-04-29 21:33 | W.ED.DENTAL ---
HPI - Dental/Oral General: Chief complaint: Dental/Oral Stated complaint: Jaw Pain Time Seen by Provider: 04/29/20 21:27 Source: patient Mode of arrival: ambulatory Limitations: no limitations History of Present Illness: HPI Narrative: 30-year-old male states he has had left-sided dental pain over the last 3 to 4 days. He states the left upper molar. He has a history of poor dentition. He has no trismus. He states pain is sharp in nature and rates it a 7 out of 10. Denies any vomiting. Denies difficulty swallowing. MD Complaint: tooth pain Associated symptoms: Denies fever(s) Review of Systems Const: Denies: fever(s), chills, body aches or change in appetite Eyes: Denies: blurry vision or eye discomfort ENMT: Reports: dental pain Card: Denies: chest pain Resp: Denies: dyspnea GI: Denies: abdominal pain, nausea, vomiting or diarrhea : Denies: dysuria Musc: Denies: neck pain or back pain Skin/Breast: Denies: rash Neuro: Denies: headache(s) Psych: Denies: depression Murray/Lymph: Denies: easy bruising All/Imm: Denies: urticaria PFSH ED PFSH: Social History Smoking and tobacco status: light tobacco smoker smokeless tobacco Smokeless tobacco user: chewing tobacco Quit status (tobacco): not considering quitting Second hand smoke exposure: No Smoking risk assessment/counseling performed?: No Alcohol intake: current Alcohol intake frequency: holidays/special occasions only Desire information about alcohol rehabilitation?: No Counseling given: No Household members: spouse Marital status: Current occupational status: other Details: WAS INCARCERATED IN 2017 Current gender identity: Male Physical Exam Const: COMMON NORMALS: no acute distress, patient oriented x3 and healthy appearing HENMT: COMMON NORMALS: normocephalic and atraumatic HEAD & SCALP: normocephalic and atraumatic OTHER: Patient has poor dentition. Tenderness over left upper molar with no abscess or trismus Eye: COMMON NORMALS: Equal, round and reactive pupils present and EOMs intact bilaterally PUPIL: Yes Equal, round and reactive pupils present Neck/C-Spine: COMMON NORMALS: full ROM and supple Chest: COMMONS NORMALS: normal inspection of the chest and normal palpation of entire chest wall Resp: COMMON NORMALS: normal respiratory effort, No retractions, No use of accessory muscles and clear to auscultation bilaterally AUSCULTATION: clear to auscultation bilaterally Cardio: COMMON NORMALS: regular rate, regular rhythm and No murmurs present (Cardio) RATE: regular rate RHYTHM: regular rhythm GI: COMMON NORMALS: Normal to inspection, nondistended, normoactive bowel sounds present, Soft to palpation, non-tender and no masses PALPATION: Yes Soft to palpation Extremity: COMMON NORMALS: normal to inspection and full ROM Neuro: COMMON NORMALS: patient oriented x3, moves all extremities and no focal motor deficits Psych: COMMON NORMALS: mental status grossly normal, Normal thought process present and cooperative THOUGHT PROCESS: Normal thought process present Skin: COMMON NORMALS: no rashes or lesions noted and no wounds GENERAL SKIN EXAM: no rashes or lesions noted Course Vital Signs: Vital signs: Vital Signs Temperature 97.7 F 04/29/20 21:22 Pulse Rate 55 L 04/29/20 21:22 Respiratory Rate 18 04/29/20 21:22 Blood Pressure 98/63 04/29/20 21:22 Pulse Oximetry 99 04/29/20 21:22 MDM - Dental/Oral MDM Narrative: Medical decision making narrative: Patient presents with dental pain with no trismus or abscess. Will place patient on antibiotics and he is to follow-up with a dentist. He is return if he has any worsening symptoms. He is well-appearing here and is stable for discharge. He understands and agrees to plan. Discharge Plan Discharge Patient Disposition: Home Clinical Impression: Toothache, Dental caries Condition: Stable Prescriptions: New Naprosyn 500 mg tablet 500 mg PO BID PRN (Reason: pain) Qty: 20 RF: 0 penicillin V potassium 500 mg tablet 500 mg PO Q6H 10 Days Qty: 40 RF: 0 Discharge Orders: Discharge Order (Routine); Ordered 04/29/20 Ordered By: Lisa Mcknight Discharge Diet: Advance as tolerated Discharge Activity: Resume usual activity Patient Instructions: Toothache (ED) Coding Level of Care Code ED Asbestos Pipe Supervisor for Aman Siddiqi
[2020-04-29] MEDS: HYDROcodone-acetaminophen 10-325 mg Tablet 1 TAB PO (21:42)
[2020-04-29] MEDS: penicillin v potassium 250 mg Tablet 500 MG PO (21:53)
== END 2020-04-29 21:55 | disposition home or self-care (01) ==
PROVIDERS: Emergency Provider Emergency Medicine
DX: K02.9 Dental caries, unspecified (principal); F17.220 Nicotine dependence, chewing tobacco, uncomplicated
CPT/HCPCS: 12345; 99281; 99283

== ENCOUNTER 2020-04-30 20:57 | Emergency (ER) | payer SELFPAY ==
[2020-04-30 21:06] VITALS: BP 113/77; PULSE 55; RESP 18; TEMP 36.5; O2SAT 98; BMI 22.6
--- NOTE | 2020-04-30 21:21 | ED_ITS ---
HPI - Dental/Oral General: Chief complaint: Dental/Oral Stated complaint: here 04/29, dentist unable to get tooth today/ Time Seen by Provider: 04/30/20 21:13 History of Present Illness: HPI Narrative: Complains worsening tooth pain did go to dentist today did not have insurance so he can get take care. Like some of her pain. Says naproxen is not helping. Denies any swelling or problems moving his jaw. Complaint: tooth pain Location: Tooth # (16) Onset (ago): day(s) Duration: constant Severity: moderate Severity scale (1-10): 5 Relieving factors: nothing Exacerbating factors: chewing, cold and heat Context: history of dental caries and poor dental care Associated symptoms: Reports no associated symptoms; Denies fever(s) Review of Systems Const: Denies: fever(s), chills or body aches Eyes: Denies: change in vision or blurry vision ENMT: Reports: dental pain; Denies: throat pain or nasal congestion Card: Denies: chest pain or dyspnea on exertion Resp: Denies: dyspnea, productive cough or non-productive cough GI: Denies: abdominal pain, nausea or vomiting : Denies: difficulty urinating Musc: Denies: extremity pain Skin/Breast: Denies: rash Neuro: Denies: headache(s) Psych: Denies: anxiety or depression Murray/Lymph: Denies: easy bruising PFSH ED PFSH: Social History Smoking and tobacco status: light tobacco smoker smokeless tobacco Smokeless tobacco user: chewing tobacco Quit status (tobacco): not considering quitting Second hand smoke exposure: No Smoking risk assessment/counseling performed?: No Alcohol intake: current Alcohol intake frequency: holidays/special occasions only Desire information about alcohol rehabilitation?: No Counseling given: No Household members: spouse Marital status: Current occupational status: other Details: WAS INCARCERATED IN 2017 Current gender identity: Male Physical Exam Const: COMMON NORMALS: no acute distress OTHER: No tribisus HENMT: MOUTH: other (Patient has pretty rough tooth #16 broke black no swe lling or abscess noted to the gum) Course Vital Signs: Vital signs: Vital Signs Temperature 97.7 F 04/30/20 21:06 Pulse Rate 55 L 04/30/20 21:06 Respiratory Rate 18 04/30/20 21:06 Blood Pressure 113/77 04/30/20 21:06 Pulse Oximetry 98 04/30/20 21:06 Discharge Plan Discharge Patient Disposition: Home Clinical Impression: Dental caries, Toothache Condition: Stable Prescriptions: New Lidocaine Viscous 2 % solution 5 ml MUCOUS MEM QID PRN (Reason: pain) Qty: 100 RF: 0 No Action Naprosyn 500 mg tablet 500 mg PO BID PRN (Reason: pain) Qty: 20 RF: 0 penicillin V potassium 500 mg tablet 500 mg PO Q6H 10 Days Qty: 40 RF: 0 Discharge Orders: Discharge Order (Routine); Ordered 04/30/20 Ordered By: Alonzo Loza Discharge Diet: Usual diet Discharge Activity: Resume usual activity Patient Instructions: Dental Caries (ED) Activity Restrictions/Additional Instructions: Follow-up with medical provider as directed. Take medications as prescribed. Return to the ER or your medical provider if condition worsens. Please read and understand discharge instructions. If any questions ask please. Coding Level of Care Code ED Transportation Equipment Painter for Aman Siddiqi
[2020-04-30] MEDS: lidocaine 2% viscous 15 mL UDC 5 ML MUCOUS MEM (21:51)
[2020-04-30 21:52] VITALS: PULSE 55; RESP 16; O2SAT 100
[2020-04-30 21:56] VITALS: PULSE 55; RESP 16; O2SAT 100
== END 2020-04-30 21:57 | disposition home or self-care (01) ==
PROVIDERS: Emergency Provider Nurse Practitioner Family
DX: K02.9 Dental caries, unspecified (principal); F17.220 Nicotine dependence, chewing tobacco, uncomplicated
CPT/HCPCS: 12345; 99281

== ENCOUNTER 2020-07-25 18:35 | Outpatient (CLI) | payer SELFPAY ==
[2020-07-25 18:47] LABS: Basophils % 0.5 %; Eosinophils # 0.1 10^3/uL (0.0-0.8); Hematocrit 39.7 % (42.0-52.0); Hemoglobin 12.7 g/dL (11.7-16.6); Lymphocytes # 2.1 10^3/uL (0.8-4.8); Lymphocytes % 24.2 %; Mean Corpuscular Hemoglobin 28.7 pg (28.0-34.0); Mean Corpuscular Volume 89.8 fL (80-94); Mean Platelet Volume 10.1 fL (7.4-10.4); Monocytes # 0.4 10^3/uL (0.2-0.9); Monocytes % 4.3 %; Neutrophils # 6.13 10^3/uL (1.8-7.7); Neutrophils % 69.8 %; Nucleated Red Blood Cells % 0 %; Platelet Count 292 10^3/cmm (130-400); Red Blood Count 4.42 10^6/uL (4.1-5.3); Red Cell Distribution Width 12.8 % (12.1-15.1); White Blood Count 8.8 10^3/uL (4.0-10.0)
[2020-07-25 19:11] LABS: Alanine Aminotransferase 14 U/L (0-41); Albumin Level 4.4 g/dL (3.5-5.2); Alkaline Phosphatase 96 IU/L (40-130); Anion Gap 11.8 (5-19); Aspartate Amino Transferase 20 U/L (0-40); Blood Urea Nitrogen 16 mg/dL (6-20); Calcium 9.3 mg/dL (8.5-10.5); Carbon Dioxide 29 mmol/L (22-29); Chloride 107 mmol/L (98-107); Globulin 3.1 g/dL (1.3-4.6); Glomerular Filtration Rate 115.1 mL/min (90-130); Glucose 95 mg/dL (65-115); Osmolality Calculated 299 mOsm/kg (285-295); Potassium 3.8 mmol/L (3.5-5.1); Sodium 144 mmol/L (136-145); Thyroid Stimulating Hormone 1.43 uIU/mL (0.27-4.20); Total Bilirubin 1.3 mg/dL (0.15-1.2); Total Protein 7.5 g/dL (6.6-8.7)
== END 2020-07-25 18:36 | disposition home or self-care (01) ==
LOC: LAB 18:37
DX: F29 Unspecified psychosis not due to a substance or known physiological condition (principal)
CPT/HCPCS: 80053; 84443; 85025

== ENCOUNTER 2020-08-06 23:26 | Inpatient (IN) | payer SELFPAY ==
[2020-08-06 23:28] VITALS: BP 111/74; PULSE 76; RESP 18; TEMP 36.5; O2SAT 99; BMI 24.0
--- NOTE | 2020-08-06 23:36 | W.ED.PSYCH ---
HPI - Psych General: Chief Complaint: Psychiatric Symptoms Stated Complaint: anger medicine not working, sharp pains in R foot Time Seen by Provider: 08/06/20 23:33 History of Present Illness: HPI Narrative: Is a 30-year-old male comes to the ED for psych evaluation. Patient says for the past 3 or 4 days he feels like his psych symptoms are getting worse. He is having increased anger, depression, SI and auditory hallucinations. He says the voices tell him to hurt himself or tear up the house. Patient says he currently takes risperidone. Patient says he hears voices in his head that tell him to destroy the house or to kill himself. He endorses decreased sleep. During these anger episodes he says he blacks out and does not remember what he did. Patient's states that patient has been acting very violent and erratic over the past couple days. She says he has been violent towards the animals in the house been getting angry very quickly. She also started him having conversation with voice in his head and voice told him to kill himself. Associated symptoms: Reports auditory hallucinations, depression and suicidal ideation; Deny visual hallucinations or homicidal ideation Review of Systems Const: Denies: fever(s), chills or fatigue Eyes: Denies: change in vision or eye discomfort ENMT: Denies: throat pain, odynophagia, nasal discharge or nasal congestion Card: Denies: chest pain, palpitations, edema, swelling of feet/ankles, dyspnea on exertion or orthopnea Resp: Denies: dyspnea, productive cough or non-productive cough GI: Denies: abdominal pain, nausea, vomiting, diarrhea, constipation or hematochezia : Denies: flank pain, difficulty urinating, dysuria or hematuria Musc: Denies: neck pain, back pain or extremity swelling Skin/Breast: Denies: rash or new lesions Neuro: Denies: headache(s), numbness in extremities or weakness in extremities Psych: Reports: depression, mood swings (Increased anger), sleeping less, irritability, auditory hallucinations and suicidal ideation; Denies: visual hallucinations or homicidal ideation [facility] PFSH: Social History Smoking and tobacco status: light tobacco smoker smokeless tobacco Smokeless tobacco user: chewing tobacco Quit status (tobacco): not considering quitting Second hand smoke exposure: No Smoking risk assessment/counseling performed?: No Alcohol intake: current Alcohol intake frequency: holidays/special occasions only Desire information about alcohol rehabilitation?: No Counseling given: No Household members: spouse Marital status: Current occupational status: other Details: WAS INCARCERATED IN 2017 Current gender identity: Male Physical Exam Const: COMMON NORMALS: no acute distress, patient oriented x3 and alert GENERAL APPEARANCE: cooperative and comfortable HENMT: COMMON NORMALS: normocephalic HEAD & SCALP: normocephalic MOUTH: Normal oral and palatal mucosa present THROAT: posterior oropharynx normal and uvula midline Neck/C-Spine: COMMON NORMALS: supple GENERAL: Yes normal visual inspection Resp: COMMON NORMALS: normal respiratory effort, No retractions, No use of accessory muscles and clear to auscultation bilaterally AUSCULTATION: clear to auscultation bilaterally Cardio: COMMON NORMALS: regular rate, regular rhythm, S1 normal heart sound present, S2 normal heart sound present, No gallops present (Cardio), No clicks present (Cardio), No murmurs present (Cardio) and Peripheral pulses 2+ throughout RATE: regular rate RHYTHM: regular rhythm HEART SOUNDS: S1 normal heart sound present and S2 normal heart sound present PERIPHERAL PULSES: Peripheral pulses 2+ throughout GI: COMMON NORMALS: Normal to inspection, nondistended, normoactive bowel sounds present, Soft to palpation, non-tender and no masses PALPATION: Yes Soft to palpation : COMMON NORMALS: Yes no CVA tenderness BLADDER/KIDNEY EXAM: Yes no CVA tenderness Back/Pelvis: COMMON NORMALS: no CVA tenderness Neuro: COMMON NORMALS: patient oriented x3 and moves all extremities SENSORIUM/ORIENTATION: Yes alert Psych: COMMON NORMALS: Normal thought process present and speech normal APPEARANCE: Yes grossly normal ATTITUDE: Yes calm ACTIVITY/MOTOR BEHAVIOR: Yes appropriate eye contact SPEECH: Yes normal speech MOOD & AFFECT: Yes depressed mood THOUGHT PROCESS: Normal thought process present THOUGHT CONTENT: Yes Suicidality present, No Homicidality present and Yes Hallucination(s) present (Hears voices telling him to hurt himself or to destroy things in the house.) auditory ATTENTION/CONCENTRATION: Yes attention grossly intact and Yes concentration grossly intact MEMORY/COGNITION: Yes memory grossly intact and Yes cognition grossly intact INSIGHT: Fair insight present (Psych) JUDGEMENT: Fair judgement present (Psych) Skin: GENERAL SKIN EXAM: dry skin MDM - Psych MDM Narrative: Medical decision making narrative: Patient is a 30-year-old male who comes to the ED for increased anger, auditory hallucinations and SI. Patient says for the past couple days he is had increased anger and his hearing voices in his head telling him to hurt himself or to destroy his house. He endorses having SI. Patient is currently on risperidone, but thinks it is not working. Patient would like to be admitted into the stress unit to get help and to have his psych meds evaluated. Dr. Patricia contacted Dr. Kwon and told about patient case and he agreed to have patient admitted into the [facility]. All screening labs performed and patient is cleared to be admitted into NPU. Dr. Patricia placed admitting orders. Lab Data: Attestation: I reviewed the patient's lab results. Labs: Lab Results 08/06/20 08/06/20 08/06/20 Range/Units 23:50 23:50 23:55 WBC 6.8 (4.0-10.0) 10^3/ uL RBC 4.32 (4.1-5.3) 10^6/u L Hgb 12.5 (11.7-16.6) g/dL Hct 38.1 L (42.0-52.0) % MCV 88.2 (80-94) fL MCH 28.9 (28.0-34.0) pg MCHC 32.8 (30.0-36.0) g/dL RDW 12.7 (12.1-15.1) % Plt Count 326 (130-400) 10^3/c mm MPV 9.3 (7.4-10.4) fL Neut % (Auto) 53.0 % Lymph % (Auto) 39.4 % [place] % (Auto) 5.3 % Eos % (Auto) 1.6 % Baso % (Auto) 0.4 % Neut # (Auto) 3.62 (1.8-7.7) 10^3/u L Lymph # (Auto) 2.7 (0.8-4.8) 10^3/u L [place] # (Auto) 0.4 (0.2-0.9) 10^3/u L Eos # (Auto) 0.1 (0.0-0.8) 10^3/u L Baso # (Auto) 0.0 (0.0-0.1) 10^3/u L Nucleated RBC % (a uto) 0 % Nucleated RBCs # 0.0 /100WBC Sodium (136-145) mmol/L Potassium (3.5-5.1) mmol/L Chloride (98-107) mmol/L Carbon Dioxide (22-29) mmol/L Anion Gap (5-19) BUN (6-20) mg/dL Creatinine (0.7-1.2) mg/dL GFR Calculation (90-130) mL/min Glucose (65-115) mg/dL Calculated Osmolal ity (285-295) mOsm/k g Calcium (8.5-10.5) mg/dL Total Bilirubin (0.15-1.2) mg/dL AST (0-40) U/L ALT (0-41) U/L Alkaline Phosphata se (40-130) IU/L Total Protein (6.6-8.7) g/dL Albumin (3.5-5.2) g/dL Globulin (1.3-4.6) g/dL Urine Color Yellow (Yellow) Urine Appearance Clear (CLEAR) Urine pH 7 (5-7) Ur Specific Gravit y 1.015 (1.005-1.030) Urine Protein Neg (Negative) Urine Glucose (UA) Norm (Normal) Urine Ketones Negative (Negative) Urine Blood Neg (Negative) Urine Nitrate Negative (Negative) Urine Bilirubin Neg (Negative) Urine Urobilinogen Norm (Negative) mg/dL Ur Leukocyte Malissa ase Negative (Negative) Urine RBC Rare (0-2) /hpf Urine WBC 0-4 H (0-5) /hpf Ur Squamous Epith Cells 0-4 H (0-5) /hpf Amorphous Sediment Not Reportable Urine Bacteria Trace (NONE) /hpf Urine Mucus Trace /hpf Salicylates (3-10) mg/dL Urine Opiates Scre en Negative (Negative) ng/mL Acetaminophen (10-30) ug/mL Ur Barbiturates Sc reen Negative (Negative) ng/mL Ur Phencyclidine S crn Negative (Negative) ng/mL Ur Amphetamines Sc reen Negative (Negative) ng/mL U Benzodiazepines Scrn Negative (Negative) ng/mL Urine Cocaine Scre en Negative (Negative) ng/mL U Marijuana (THC) Screen Negative (Negative) ng/mL Ethyl Alcohol (0-10) mg/dL 08/06/20 Range/Units 23:55 WBC (4.0-10.0) 10^3/ uL RBC (4.1-5.3) 10^6/u L Hgb (11.7-16.6) g/dL Hct (42.0-52.0) % MCV (80-94) fL MCH (28.0-34.0) pg MCHC (30.0-36.0) g/dL RDW (12.1-15.1) % Plt Count (130-400) 10^3/c mm MPV (7.4-10.4) fL Neut % (Auto) % Lymph % (Auto) % [place] % (Auto) % Eos % (Auto) % Baso % (Auto) % Neut # (Auto) (1.8-7.7) 10^3/u L Lymph # (Auto) (0.8-4.8) 10^3/u L [place] # (Auto) (0.2-0.9) 10^3/u L Eos # (Auto) (0.0-0.8) 10^3/u L Baso # (Auto) (0.0-0.1) 10^3/u L Nucleated RBC % (a uto) % Nucleated RBCs # /100WBC Sodium 140 (136-145) mmol/L Potassium 3.9 (3.5-5.1) mmol/L Chloride 103 (98-107) mmol/L Carbon Dioxide 32 H (22-29) mmol/L Anion Gap 8.9 (5-19) BUN 12 (6-20) mg/dL Creatinine 0.7 (0.7-1.2) mg/dL GFR Calculation 134.3 H (90-130) mL/min Glucose 92 (65-115) mg/dL Calculated Osmolal ity 289 (285-295) mOsm/k g Calcium 9.9 (8.5-10.5) mg/dL Total Bilirubin 0.4 (0.15-1.2) mg/dL AST 19 (0-40) U/L ALT 19 (0-41) U/L Alkaline Phosphata se 108 (40-130) IU/L Total Protein 7.6 (6.6-8.7) g/dL Albumin 4.5 (3.5-5.2) g/dL Globulin 3.1 (1.3-4.6) g/dL Urine Color (Yellow) Urine Appearance (CLEAR) Urine pH (5-7) Ur Specific Gravit y (1.005-1.030) Urine Protein (Negative) Urine Glucose (UA) (Normal) Urine Ketones (Negative) Urine Blood (Negative) Urine Nitrate (Negative) Urine Bilirubin (Negative) Urine Urobilinogen (Negative) mg/dL Ur Leukocyte Malissa ase (Negative) Urine RBC (0-2) /hpf Urine WBC (0-5) /hpf Ur Squamous Epith Cells (0-5) /hpf Amorphous Sediment Urine Bacteria (NONE) /hpf Urine Mucus /hpf Salicylates < 0.3 L (3-10) mg/dL Urine Opiates Scre en (Negative) ng/mL Acetaminophen < 5.0 L (10-30) ug/mL Ur Barbiturates Sc reen (Negative) ng/mL Ur Phencyclidine S crn (Negative) ng/mL Ur Amphetamines Sc reen (Negative) ng/mL U Benzodiazepines Scrn (Negative) ng/mL Urine Cocaine Scre en (Negative) ng/mL U Marijuana (THC) Screen (Negative) ng/mL Ethyl Alcohol < 10 (0-10) mg/dL Discharge Plan Discharge Prescriptions: No Action naproxen [Naprosyn] 500 mg tablet 500 mg PO BID PRN (Reason: pain) Qty: 20 RF: 0 Lidocaine Viscous 2 % solution 5 ml MUCOUS MEM QID PRN (Reason: pain) Qty: 100 RF: 0 Coding Level of Care Code ED Alteration Tailor Apprentice for Chg Fwd Exam Comprehensive
[2020-08-07 00:05] LABS: Basophils % 0.4 %; Eosinophils # 0.1 10^3/uL (0.0-0.8); Eosinophils % 1.6 %; Hematocrit 38.1 % (42.0-52.0); Hemoglobin 12.5 g/dL (11.7-16.6); Lymphocytes # 2.7 10^3/uL (0.8-4.8); Lymphocytes % 39.4 %; Mean Corpuscular HGB Conc 32.8 g/dL (30.0-36.0); Mean Corpuscular Hemoglobin 28.9 pg (28.0-34.0); Mean Corpuscular Volume 88.2 fL (80-94); Mean Platelet Volume 9.3 fL (7.4-10.4); Monocytes # 0.4 10^3/uL (0.2-0.9); Monocytes % 5.3 %; Neutrophils # 3.62 10^3/uL (1.8-7.7); Nucleated Red Blood Cells % 0 %; Platelet Count 326 10^3/cmm (130-400); Red Blood Count 4.32 10^6/uL (4.1-5.3); Red Cell Distribution Width 12.7 % (12.1-15.1); White Blood Count 6.8 10^3/uL (4.0-10.0)
[2020-08-07 00:11] LABS: Urine Appearance Clear (CLEAR); Urine Color Yellow (Yellow)
[2020-08-07 00:12] LABS: Bilirubin Urine Neg (Negative); Blood Urine Neg (Negative); Glucose Urine UA Norm (Normal); Ketones Urine Negative (Negative); Leukocyte Esterase Urine Negative (Negative); Nitrate Urine Negative (Negative); Protein Urine Neg (Negative); RBC Urine RARE /hpf (0-2); Specific Gravity, Urine 1.015 (1.005-1.030); Squamous Epithelial Cell Urine 0-4 /hpf (0-5); Urobilinogen Urine Norm (Negative); pH Urine 7 (5-7)
[2020-08-07 00:13] LABS: Add Urine Culture? No; Bacteria Urine TRACE /hpf; Mucus Urine TRACE /hpf; WBC Urine 0-4 /hpf (0-5)
[2020-08-07] MEDS: HYDROcodone-acetaminophen 5-325 mg Tablet 1 TAB PO (00:18)
[2020-08-07 00:20] LABS: Amphetamines Screen Urine Negative (Negative); Barbiturates Screen Urine Negative (Negative); Benzodiazepines Screen Urine Negative (Negative); Cocaine Screen Urine Negative (Negative); Opiate Screen Urine Negative (Negative); PCP Screen Urine Negative (Negative); THC Screen Urine Negative (Negative)
[2020-08-07 00:23] LABS: Alanine Aminotransferase 19 U/L (0-41); Albumin Level 4.5 g/dL (3.5-5.2); Alkaline Phosphatase 108 IU/L (40-130); Anion Gap 8.9 (5-19); Aspartate Amino Transferase 19 U/L (0-40); Blood Urea Nitrogen 12 mg/dL (6-20); Calcium 9.9 mg/dL (8.5-10.5); Carbon Dioxide 32 mmol/L (22-29); Chloride 103 mmol/L (98-107); Globulin 3.1 g/dL (1.3-4.6); Glomerular Filtration Rate 134.3 mL/min (90-130); Glucose 92 mg/dL (65-115); Osmolality Calculated 289 mOsm/kg (285-295); Potassium 3.9 mmol/L (3.5-5.1); Sodium 140 mmol/L (136-145); Total Bilirubin 0.4 mg/dL (0.15-1.2); Total Protein 7.6 g/dL (6.6-8.7)
[2020-08-07 00:33] LABS: Acetaminophen < 5.0 ug/mL (10-30); Alcohol Level < 10 mg/dL (0-10); Salicylate < 0.3 mg/dL (3-10)
[2020-08-07 04:16] VITALS: BP 103/66; PULSE 70; RESP 14; O2SAT 98
[2020-08-07 05:12] VITALS: BP 96/71; PULSE 66; RESP 18; TEMP 36.3; O2SAT 98
--- NOTE | 2020-08-07 05:34 | PC.NURSE ---
PM assessment Is a 30-year-old male comes to the ED for psych evaluation. Patient says for the past 3 or 4 days he feels like his psych symptoms are getting worse. He is having increased anger, depression, SI and auditory hallucinations. He says the voices tell him to hurt himself or tear up the house. Patient says he currently takes risperidone. Patient says he hears voices in his head that tell him to destroy the house or to kill himself. He endorses decreased sleep. During these anger episodes he says he blacks out and does not remember what he did. Patient's states that patient has been acting very violent and erratic over the past couple days. She says he has been violent towards the animals in the house been getting angry very quickly. She also started him having conversation with voice in his head and voice told him to kill himself. BAL and DOA are negative. PT thinks his home medication needs adjustment.
[2020-08-07 13:56] VITALS: BP 94/68; PULSE 83; RESP 16; TEMP 37.2; O2SAT 92
--- NOTE | 2020-08-07 17:46 | PM.SDS ---
Short Stay Summary Providers Date of Admit/Discharge: 08/23/20 Attending Provider: Conrad Kwon MD Chief Complaint: anger medicine not working, sharp pains in R foot HPI History of Present Illness Silviano Arreola is a 30 year old male who presented to the emergency department with the following report: Chief Complaint: Psychiatric Symptoms Stated Complaint: anger medicine not working, sharp pains in R foot Time Seen by Provider: 08/06/20 23:33 History of Present Illness: HPI Narrative: Is a 30-year-old male comes to the ED for psych evaluation. Patient says for the past 3 or 4 days he feels like his psych symptoms are getting worse. He is having increased anger, depression, SI and auditory hallucinations. He says the voices tell him to hurt himself or tear up the house. Patient says he currently takes risperidone. Patient says he hears voices in his head that tell him to destroy the house or to kill himself. He endorses decreased sleep. During these anger episodes he says he blacks out and does not remember what he did. Patient's states that patient has been acting very violent and erratic over the past couple days. She says he has been violent towards the animals in the house been getting angry very quickly. She also started him having conversation with voice in his head and voice told him to kill himself. Associated symptoms: Reports auditory hallucinations, depression and suicidal ideation; Deny visual hallucinations or homicidal ideation. He was admitted to the neuropsychiatric unit for definitive treatment of those issues. He presents now resistant to treatment or any robust evaluation. Try to assist him by telling him that we did have a conversation we can make sure that he got the medication that he needed but he has been talking with his significant other and was just wanting to leave. He is not on a 96-hour hold and neither he or his significant other are endorsing any behaviors that would demand that he be kept against his will. He endorses that he has been on Risperdal in the past but it is unclear how effective it has been. Endorses no recent history of significant difficulties with addiction. Denies past psychiatric hospitalizations. Denies any major family history of mental health or addiction. Denies any developmental delays but does endorse some difficulty with learning and needing assistance in school. He reports he does have a sister and his parents were together when he was born no worsening of significant childhood trauma. He graduated high school. He endorses being a heterosexual. He denies any biological children, being in the or any significant advent believes system. He is not currently employed. Lives in an apartment with his significant other. He endorses incarceration that ended couple years ago. I discussed the recommended alternatives of considering his medication regiment and he understood but denied any desire to continue treatment and wanted to pursue things as an outpatient. Mental status examination: This is a well-nourished, well-developed white male in hospital scrubs with grooming and eye contact. No abnormal movements except for mild psychomotor retardation. Cooperative with exam in no acute distress. Speech was limited and decreased rate and volume mood described as fine affect congruent. Thought process organized. Thought content: Patient denied any suicidal or homicidal ideation, no delusions reported or noted, he denied any auditory or visual hallucinations. Attention and concentration were intact and memory appeared reliable but none were formally tested. He is alert and oriented x3. Insight and judgment are limited and impulse control appears fair. Assessment/plan: This is a 30-year-old white male with a reported history of intermittent explosive disorder who presents with some significant conflict at home and adjustment disorder with some initial concern for suicidal ideation which he currently denies who endorses wanting outpatient treatment and having no interest in inpatient services. 1. Continue current medication. We recommend medication however patient is not staying. 2. Continue every 15 minute checks for safety. 3. Encourage individual, group and milieu therapies. 4. We will make referral for outpatient services prior to discharge. Home Meds/Allergies Home Medications and Allergies Allergies Allergy/AdvReac Type Severity Reaction Status Date / Time Corticosteroids Allergy Severe body Verified 08/15/20 12:48 (Glucocorticoids) itching and aches onion Allergy ALGY-Swell Verified 04/19/20 01:22 Lip/Tongue/Throat PFSH Acute PFSH: Social History Smoking and tobacco status: light tobacco smoker smokeless tobacco Smokeless tobacco user: chewing tobacco Quit status (tobacco): not considering quitting Second hand smoke exposure: No Smoking risk assessment/counseling performed?: No Alcohol intake: current Alcohol intake frequency: holidays/special occasions only Desire information about alcohol rehabilitation?: No Counseling given: No Household members: spouse Marital status: Current occupational status: other Details: WAS INCARCERATED IN 2017 Current gender identity: Male Vitals/I&O/Wt Last Vital Signs Temp 98.9 F 08/07/20 13:56 Pulse 83 08/07/20 13:56 Resp 16 08/07/20 13:56 BP 94/68 08/07/20 13:56 Pulse Ox 92 08/07/20 13:56 Weight last 48 hrs Weight 67.585 kg Hospital Course Admission Diagnoses Adjustment disorder with mixed disturbance of emotion and conduct, suicidal ideation, and explosive disorder. Hospital Course Shannan presented to the emergency department endorsing being overwhelmed and stressed and felt like his medication was not working. He was admitted to the neuropsychiatric unit for definitive treatment of those issues. On the unit he seemed to have a change of heart and did not want to stay in inpatient services only wanted to do outpatient services. We attempted to negotiate with him on how we could do that in a safe but quick process that he was not interested. He was able to contract for safety and accepting of referral to outpatient services. During the hospitalization, patient had routine laboratory studies which were within normal limits except for few outliers. Additionally there was a general medical evaluation which was also within normal limits and revealed no new acute processes. Discharge Summary At the time of discharge, lethality and psychosis denied. Mood and anxiety were well managed. Patient endorsed a plan to follow-up with the aftercare recommendations of the treatment team. Patient was evaluated and deemed to be absent credible lethality, and was a voluntary patient not interested in further inpatient services help, so was discharged. Diagnoses at Discharge Discharge Diagnosis (1) Adjustment disorder with mixed disturbance of emotions and conduct: Status: Acute (2) Suicidal ideation: Status: Acute (3) Intermittent explosive disorder: Status: Acute Discharge Plan Discharge Patient Disposition: Home Condition: Stable Prescriptions: Continued naproxen [Naprosyn] 500 mg tablet 500 mg PO BID PRN (Reason: pain) Qty: 20 RF: 0 Lidocaine Viscous 2 % solution 5 ml MUCOUS MEM QID PRN (Reason: pain) Qty: 100 RF: 0 Discharge Orders: Discharge Order (Routine); Ordered 08/07/20 Ordered By: Conrad Kwon Discharge Diet: Regular Discharge Activity: Resume usual activity Attestations Medical Necessity Statement*: Inpatient hospitalization is no longer medically necessary but would be clinically appropriate. He was not interested in inpatient services and so he was discharged with referral to outpatient follow-up. Time Spent in Patient Care*: greater than 30 min Specific Discharge Activities: Specific discharge activities: educating patient, discussing with case loader operator/social workers/dc planners, documenting/other paperwork and evaluating patient/reviewing data Quality Metrics Clinical Quality Measures: During this hospital stay, did patient experience: None Coding Level of Care Code Acute Insulator Apprentice for g Fwd Diagnoses Adjustment disorder with mixed disturbance of emotions and conduct F43.25 Suicidal ideation R45.851 Intermittent explosive disorder F63.81
[2020-08-07 17:57] VITALS: BP 94/68; PULSE 83; RESP 16; TEMP 37.2; O2SAT 92
== END 2020-08-07 18:00 | disposition home or self-care (01) | DRG 882 ==
LOC: ER 23:40 → NP 08-07 02:29
PROVIDERS: Admitting Provider Psychiatry & Neurology Psychiatry; Emergency Provider Physician Assistant; Visit Provider Psychiatry & Neurology Psychiatry
DX: F43.25 Adjustment disorder with mixed disturbance of emotions and conduct (principal); R45.851 Suicidal ideations; F63.81 Intermittent explosive disorder; F32.9 Major depressive disorder, single episode, unspecified; F17.220 Nicotine dependence, chewing tobacco, uncomplicated
CPT/HCPCS: 12345; 80053; 80306; 80307; 81001; 85025; 99281

== ENCOUNTER 2020-09-10 02:53 | Emergency (ER) | payer SELFPAY ==
[2020-09-10 02:59] VITALS: BP 128/74; PULSE 62; RESP 16; TEMP 36.4; O2SAT 99; BMI 24.1
--- NOTE | 2020-09-10 03:02 | ED_ITS ---
HPI - General Adult General: Stated complaint: r knee pain Time Seen by Provider: 09/10/20 03:00 Source: patient, family and RN notes reviewed Limitations: no limitations History of Present Illness: HPI narrative: This patient is a 30-year-old male who presents to the emergency department plaint of right knee pain. Patient states he bumped his knee 1 month ago while unloading the container. Patient states he just felt little sore tonight. Patient was observed pushing his significant other in a wheelchair through the parking lot and in the lobby of the ER. Patient does not appear to be acutely sick no signs of injury. I did discuss at length with patient about findings and concerning for chronic issue. Patient is advised to follow-up with his primary care physician for which he says he has been seen by Dr. Zepeda for the same he was advised to use Tylenol Motrin. Patient be discharged home should rest ice and elevate right knee as needed. Follow-up with PCP as needed. Onset (ago): month(s) (5) Location: right and lower extremity Pain Consistency: intermittent Associated symptoms: Deny chest pain, dyspnea, headache(s), nausea, rash, palpitations or vomiting Review of Systems General: Reports: 10 or more systems reviewed and unremarkable except in HPI and below Const: Denies: fever(s), chills, body aches or fatigue Eyes: Denies: change in vision or blurry vision ENMT: Denies: throat pain, hoarseness or mouth pain Card: Denies: chest pain or palpitations Resp: Denies: dyspnea GI: Denies: nausea or vomiting : Reports: flank pain; Denies: dysuria, urinary frequency, urinary urgency or urinary hesitancy Musc: Reports: joint pain; Denies: neck pain, back pain, extremity pain, extremity swelling, joint swelling, joint redness, joint warmth or limited range of motion Skin/Breast: Denies: rash Neuro: Denies: headache(s) Psych: Denies: anxiety or depression PFSH ED PFSH: Social History Smoking and tobacco status: light tobacco smoker smokeless tobacco Smokeless tobacco user: chewing tobacco Quit status (tobacco): not considering quitting Second hand smoke exposure: No Smoking risk assessment/counseling performed?: No Alcohol intake: current Alcohol intake frequency: holidays/special occasions only Desire information about alcohol rehabilitation?: No Counseling given: No Household members: spouse Marital status: Current occupational status: other Details: WAS INCARCERATED IN 2017 Current gender identity: Male Physical Exam Const: COMMON NORMALS: no acute distress, average body habitus, patient oriented x3, no limitations, healthy appearing, alert and well nourished HENMT: COMMON NORMALS: normocephalic, atraumatic, external ears normal, EAC's normal, TM's normal bilaterally, Normal external nose present and Normal nasal mucous membranes and turbinates present HEAD & SCALP: normocephalic and atraumatic NOSE: Normal external nose present and Normal nasal mucous membranes and turbinates present EXTERNAL EAR: Yes external ears normal EXTERNAL AUDITORY CANAL: EAC's normal TYMPANIC MEMBRANE: TM's normal bilaterally Neck/C-Spine: COMMON NORMALS: full ROM, no lymphadenopathy, supple, no meningeal signs, no JVD, Thyroid normal and No carotid bruits THYROID: Thyroid normal Chest: COMMONS NORMALS: normal inspection of the chest, normal palpation of entire chest wall, normal inspection of the breasts and normal palpation of the breasts Breast/axilla inspection: Yes normal inspection of the breasts BREAST/AXILLA PALPATION: Yes normal palpation of the breasts Resp: COMMON NORMALS: normal respiratory effort, No retractions, No use of accessory muscles, clear to auscultation bilaterally and percussion normal AUSCULTATION: clear to auscultation bilaterally PERCUSSION: percussion normal Cardio: COMMON NORMALS: no JVD, regular rate, regular rhythm, S1 normal heart sound present, S2 normal heart sound present, No gallops present (Cardio), No clicks present (Cardio), No murmurs present (Cardio), No rub (Cardio) and Pe ripheral pulses 2+ throughout RATE: regular rate RHYTHM: regular rhythm HEART SOUNDS: S1 normal heart sound present and S2 normal heart sound present PERIPHERAL PULSES: Peripheral pulses 2+ throughout GI: COMMON NORMALS: Normal to inspection, nondistended, normoactive bowel sounds present, Soft to palpation, non-tender, No hepatosplenomegaly present, no masses and no bruits PALPATION: Yes Soft to palpation and Yes No hepatosplenomegaly present : COMMON NORMALS: Yes no CVA tenderness BLADDER/KIDNEY EXAM: Yes no CVA tenderness Back/Pelvis: COMMON NORMALS: no CVA tenderness, thoracic and lumbar spine normal to inspection, no thoracic nor lumbar tenderness, thoraco-lumbar ROM normal and straight leg raise negative bilaterally Extremity: COMMON NORMALS: normal to inspection, full ROM, capillary refill normal, no joint enlargement, no clubbing, cyanosis or edema, no calf tenderness and no pedal edema Neuro: COMMON NORMALS: patient oriented x3 SENSORIUM/ORIENTATION: Yes alert MENINGEAL SIGNS: Yes no meningeal signs Course ED course: I did discuss at length with patient about findings and concerning for chronic issue. Patient is advised to follow-up with his primary care physician for which he says he has been seen by Dr. Zepeda for the same he was advised to use Tylenol Motrin. Patient be discharged home should rest ice and elevate right knee as needed. Follow-up with PCP as needed. MDM - General Adult MDM Narrative: Medical decision making narrative: Nonemergent visit to the emergency department Discharge Plan Discharge Patient Disposition: Home Clinical Impression: Encounter for medical screening examination, Chronic knee pain Condition: Stable Prescriptions: No Action naproxen [Naprosyn] 500 mg tablet 500 mg PO BID PRN (Reason: pain) Qty: 20 RF: 0 Lidocaine Viscous 2 % solution 5 ml MUCOUS MEM QID PRN (Reason: pain) Qty: 100 RF: 0 Discharge Orders: Discharge ED (Routine); Ordered 09/10/20 Ordered By: Jung Smith Discharge Diet: Advance as tolerated Discharge Activity: Resume usual activity Patient Instructions: Opioid Safety Activity Restrictions/Additional Instructions: Rest ice elevation as needed Tylenol Motrin as needed for pain. Follow-up with your PCP for chronic conditions. 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
[2020-09-10 03:05] VITALS: PULSE 60
[2020-09-10 03:11] VITALS: BP 117/80; PULSE 58; RESP 17; O2SAT 99
== END 2020-09-10 03:11 | disposition home or self-care (01) ==
PROVIDERS: Emergency Provider Emergency Medicine
DX: G89.29 Other chronic pain (principal); M25.561 Pain in right knee; F17.220 Nicotine dependence, chewing tobacco, uncomplicated
CPT/HCPCS: 99281

== ENCOUNTER → 2021-03-10 16:32 | Outpatient (BNVA) | payer OTHER, SELFPAY | PROVIDERS: Visit Provider Nurse Practitioner Family | DX: Z20.822 Contact with and (suspected) exposure to COVID-19 (principal); J06.9 Acute upper respiratory infection, unspecified | CPT/HCPCS: 87635 ==

== ENCOUNTER 2021-03-14 06:42 | Emergency (ER) | payer SELFPAY ==
--- NOTE | 2021-03-14 07:06 | W.ED.URI ---
HPI - URI/Sore Throat General: Chief Complaint: Upper Respiratory Infection Stated Complaint: SORE THROAT,COUGH(CHEST HEAVY),DIFF BREATHING Time Seen by Provider: 03/14/21 06:45 Source: patient Mode of arrival: ambulatory Limitations: no limitations History of Present Illness: HPI Narrative: 30-year-old male presents to the ER today for shortness of breath and chest wall tenderness that started about 630 this a.m. Patient reports he was on his way to work when this happened. He reports he became short of breath and had to use an inhaler 3 times. This was not his inhaler but a family member's inhaler. He reports the shortness of breath did improve with that some. He reports a URI last week with some sinus congestion and nasal discharge. Patient had a negative Covid test about 2 days ago. He denies any fever or chills. He does report a scratchy/sore throat. Denies any ear pain. He reports a very mild cough that is nonproductive. Patient denies any smoking history. Patient denies any chest pain currently other than when he presses on his chest or takes a deep breath. Denies any recent sick contacts. Denies nausea, vomiting, diarrhea, constipation, change in bowel or bladder habits. MD elicited complaint: cough and sore throat Onset (ago): hour(s) (1) Consistency: intermittent Severity: mild Able to tolerate fluids by mouth: Yes Exacerbating factors: other (deep breaths) Relieving factors: other (inhaler) Associated symptoms: Reports chest pain (with movement and deep breaths), cough, short of breath and sore throat; Deny abdominal pain, chills, congestion, diarrhea, ear or mastoid pain, fever(s), headache(s), nasal congestion, nausea, rhinorrhea or vomiting Treatments prior to arrival: other (inhaler) Review of Systems Const: Denies: fever(s), chills or body aches ENMT: Reports: throat pain; Denies: ear or mastoid pain, nasal discharge or nasal congestion Card: Reports: chest pain (with movement and deep breaths); Denies: palpitations Resp: Reports: dyspnea; Denies: productive cough, non-productive cough or wheezing GI: Denies: abdominal pain, nausea, vomiting, diarrhea, constipation or change in bowel habits Musc: Denies: back pain Skin/Breast: Denies: rash Neuro: Denies: headache(s) PFSH ED PFSH: Medical History Intellectual disability MDD (major depressive disorder), recurrent, severe, with psychosis PTSD (post-traumatic stress disorder) Social History Smoking and tobacco status: light tobacco smoker smokeless tobacco Smokeless tobacco user: chewing tobacco Quit status (tobacco): not considering quitting Second hand smoke exposure: No Smoking risk assessment/counseling performed?: No Alcohol intake: current Alcohol intake frequency: holidays/special occasions only Desire information about alcohol rehabilitation?: No Counseling given: No Household members: spouse Marital status: Current occupational status: other Details: WAS INCARCERATED IN 2017 Current gender identity: Male Physical Exam Const: COMMON NORMALS: no acute distress, average body habitus and patient oriented x3 GENERAL APPEARANCE: cooperative and comfortable ORIENTATION/CONSCIOUSNESS: Yes awake HENMT: COMMON NORMALS: normocephalic, external ears normal, Normal external nose present and Normal nasal mucous membranes and turbinates present HEAD & SCALP: normocephalic FACE & SINUS: sinuses nontender NOSE: Normal external nose present and Normal nasal mucous membranes and turbinates present EXTERNAL EAR: Yes external ears normal THROAT: posterior oropharynx normal and tonsils normal Eye: COMMON NORMALS: conjunctivae normal CONJUNCTIVA: Yes conjunctivae normal Neck/C-Spine: COMMON NORMALS: no lymphadenopathy Chest: COMMONS NORMALS: negative for normal palpation of entire chest wall (minimal tenderness with chest wall palpation) Resp: COMMON NORMALS: normal respiratory effort and clear to auscultation bilaterally EFFORT & INSPECTION: Yes able to speak in complete sentences and No respiratory distress AUSCULTATION: clear to auscultation bilaterally, no rales, no rhonchi and no wheezes Cardio: COMMON NORMALS: regular rate and regular rhythm RATE: regular rate RHYTHM: regular rhythm GI: COMMON NORMALS: Normal to inspection, nondistended, normoactive bowel sounds present and non-tender Extremity: COMMON NORMALS: normal to inspection Neuro: COMMON NORMALS: patient oriented x3 Psych: COMMON NORMALS: mental status grossly normal Skin: COMMON NORMALS: no rashes or lesions noted GENERAL SKIN EXAM: no rashes or lesions noted Course ED course: Patient was stable in the ER today. Vital signs were all normal. Exam was unremarkable. Patient had a negative Covid test within the last 72 hours. Patient given inhaler and naproxen for chest wall tenderness. Discussed return guidelines. Rest and follow-up with PCP next week MDM - URI/Sore Throat MDM Narrative: Medical decision making narrative: Patient presents to the ER today complaining of chest wall tenderness that is worse with deep breathing. He also complains of some shortness of breath that resolved after using an inhaler this morning. He reports a recent upper respiratory infection last week. Denies any fever or chills. Had a negative Covid test within the last 72 hours. This is likely a viral illness versus mild costochondritis. We will treat with anti-inflammatories and an inhaler for the shortness of breath. Patient is okay to be off work today and should follow-up with a primary care doctor next week. Critical Care Time Critical Care Time: Critical Care Time: No Discharge Plan Discharge Patient Disposition: Home Clinical Impression: Costochondritis URI (upper respiratory infection) Qualifiers: URI type: unspecified viral URI Qualified Code(s): J06.9 - Acute upper respiratory infection, unspecified Condition: Stable Prescriptions: New Ventolin HFA 90 mcg/actuation HFA aerosol inhaler 1 inh inhalation Q6H PRN (Reason: shortness of breath or wheezing) Qty: 6.7 RF: 0 naproxen 500 mg tablet 500 mg PO BID PRN (Reason: pain) Qty: 20 RF: 0 Discharge Orders: Discharge ED (Routine); Ordered 03/14/21 Ordered By: Shannan Smith Discharge Diet: Usual diet Discharge Activity: Resume usual activity Patient Instructions: Opioid Safety Activity Restrictions/Additional Instructions: Use inhaler and take naproxen as prescribed. Increase fluid intake. Rest recommended. Return to the ER with any new or worsening symptoms. Follow-up with primary care doctor next week if no improvement in symptoms. 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
[2021-03-14 07:31] VITALS: BP 91/59; PULSE 59; RESP 14; TEMP 36.5; O2SAT 97; BMI 26.6
[2021-03-14 07:53] VITALS: BP 91/59; PULSE 62; RESP 16; O2SAT 99
== END 2021-03-14 07:55 | disposition home or self-care (01) ==
PROVIDERS: Emergency Provider Physician Assistant
DX: J06.9 Acute upper respiratory infection, unspecified (principal); M94.0 Chondrocostal junction syndrome [Tietze]; F17.220 Nicotine dependence, chewing tobacco, uncomplicated
CPT/HCPCS: 99281

== ENCOUNTER 2021-05-12 09:52 | Emergency (ER) | payer SELFPAY ==
[2021-05-12 10:36] VITALS: BP 106/65; PULSE 60; RESP 15; TEMP 36.7; O2SAT 97; BMI 24.1
--- NOTE | 2021-05-12 11:01 | CT_ITS ---
WS: [id number] CT CERVICAL TRAUMA TECHNIQUE: Noncontrast CT of the cervical spine with coronal and sagittal reformatted images. CLINICAL INFORMATION: L arm numbness COMPARISON: None. DLP: 671.[address] scans at [facility] use at least one of these dose optimization techniques: automated e xposure control; mA and/or kV adjustment per patient size (includes targeted exams where dose is matc hed to clinical indication); or iterative reconstruction. FINDINGS: Straightening with slight reversal of the normal cervical lordosis. Slight anterolisthesis C2 on C3. This is unchanged since CT neck 2013. Normal craniocervical junction. Normal C1-C2 articulation. Dens is normal in appearance. Normal occipital condyles. No high-grade spinal canal narrowing. Normal C1 ring. No evidence of acute fracture or dislocation. C2-C3: Normal. C3-C4: Normal. C4-C5: Normal. C5-C6: Mild disc osteophytic ridging. Mild to moderate left bony foraminal narrowing. Right foramen i s patent. Mild central canal stenosis. C6-C7: Disc osteophytic ridging. Mild bilateral bony foraminal narrowing. Moderate facet arthropathy. Mild central canal stenosis. C7-T1: No significant disc bulging. Spinal canal and foramen are patent. CT/CT cervical spin wo con* [id number] IMPRESSION: 1. Straightening with slight reversal of the normal cervical lordosis. Slight anterolisthesis C2 on C3. This is unchanged since CT neck 2013. 2. Mild to moderate left C5-6 bony foraminal narrowing. 3. Mild bilateral bony foraminal narrowing C6-7. 4. Mild central canal stenosis C5-C6 and C6-C7. 5. Findings can be followed up with MRI cervical spine.
--- NOTE | 2021-05-12 11:02 | W.ED.EXTPRO ---
Documented by User: BOY Hale 05/12/21 14:00 HPI - Extremity Problem General: Chief complaint: Extremity Problem,Nontraumatic Stated complaint: L shoulder Time Seen by Provider: 05/12/21 10:41 Source: patient Mode of arrival: ambulatory Limitations: no limitations History of Present Illness: HPI Narrative: Patient is a 31-year-old male who presents to ED today with a complaint of left arm numbness/pain. Patient tells me approximately 48 hours he woke up not being able to feel his left arm. Patient states he went to work and dropped several things during the day secondary to this. He states when he woke up on Wednesday his symptoms seemed to worsen and he was concerned that he had lost circulation in it stating he noticed some bluish/purplish coloring to the arm (this has subsided). No injury or trauma. He states numbness is from the left side of his neck all the way down his extremity. MD Complaint: extremity pain Onset (ago): day(s) Pain Consistency: constant Location: left and upper extremity Relieving factors: nothing Exacerbating factors: nothing Associated symptoms: Reports no associated symptoms; Deny chest pain, fever(s) or rash Review of Systems Const: Denies: fever(s), chills, body aches, fatigue or malaise Card: Denies: chest pain Resp: Denies: dyspnea Musc: Reports: extremity pain; Denies: neck pain, back pain, extremity swelling, joint pain, joint swelling, joint redness, joint warmth or muscle cramps Skin/Breast: Denies: rash, new lesions or changing lesions Neuro: Reports: numbness in extremities (L UE) and weakness in extremities (L UE) [facility] ED PFSH: Medical History Intellectual disability MDD (major depressive disorder), recurrent, severe, with psychosis PTSD (post-traumatic stress disorder) Social History Smoking and tobacco status: light tobacco smoker smokeless tobacco Smokeless tobacco user: chewing tobacco Quit status (tobacco): not considering quitting Second hand smoke exposure: No Smoking risk assessment/counseling performed?: No Alcohol intake: current Alcohol intake frequency: holidays/special occasions only Desire information about alcohol rehabilitation?: No Counseling given: No Household members: spouse Marital status: Current occupational status: other Details: WAS INCARCERATED IN 2017 Current gender identity: Male Physical Exam Const: COMMON NORMALS: no acute distress, average body habitus, patient oriented x3, no limitations, healthy appearing, alert and well nourished HENMT: COMMON NORMALS: normocephalic and atraumatic HEAD & SCALP: normocephalic and atraumatic Neck/C-Spine: COMMON NORMALS: no meningeal signs, no JVD and No carotid bruits GENERAL: Yes normal visual inspection and No lymphadenopathy CERVICAL SPINE: Yes cervical ROM normal OTHER: negative Spurling's testing Chest: COMMONS NORMALS: normal inspection of the chest and normal palpation of entire chest wall Resp: COMMON NORMALS: normal respiratory effort and clear to auscultation bilaterally AUSCULTATION: clear to auscultation bilaterally Cardio: COMMON NORMALS: no JVD, regular rate and regular rhythm RATE: regular rate RHYTHM: regular rhythm Extremity: OTHER: L UE has no notable swelling, extremity is equal color and temp when compared to R, he has palpable radial and brachial pulses, cap refill is equal when compared to R he is reporting no sensation to the entire extremity; sensory was tested with light tough and pinching and patient reports no sensation ROM was tested and he complains of pain to R shoulder with ROM; he tells me he is unable to flex/bend his elbow secondary to not being able to feel it -when I try to do this passively I can feel patient resisting this; he seems to maintain wrist flexion/extension against resistance Neuro: COMMON NORMALS: patient oriented x3 SENSORIUM/ORIENTATION: Yes alert MENINGEAL SIGNS: Yes no meningeal signs Skin: COMMON NORMALS: no rashes or lesions noted GENERAL SKIN EXAM: no rashes or lesions noted TRAUMA: no lacerations or abrasions Course Vital Signs: Vital signs: Vital Signs Temperature 98.1 F 05/12/21 10:36 Pulse Rate 76 05/12/21 14:04 Respiratory Rate 18 05/12/21 14:04 Blood Pressure 110/70 05/12/21 14:04 Pulse Oximetry 96 05/12/21 14:04 MDM - Extremity (Nontraumatic) MDM Narrative: Medical decision making narrative: Patient here with complaints of entire left upper extremity numbness and pain. No known injury or trauma. Exam reveals no swelling or color changes. He has palpable pulses and normal cap refill. He is reporting complete numbness to his entire arm/no specific distribution. During certain ROM testing he is actively resisting any passive ROM from me. I have re-assessed patient several times and twice he was using extremity to play on a cell phone. He tells me he cannot use/move his arm but has been able to work over the past 48 hours-although does state he has dropped several things. He refused IM meds here stating he needs to get back to work. I originally scanned C spine which did not show anything obvious that would explain complete numbness in several nerve roots. Spoke to Dr. Newberry who recommended CT head which again was normal. At this time will treat with NSAIDS, steroids, muscle relaxers and recommend PCP follow up if symptoms don't improve. Imaging Data^: CT cervical : Radiologist's impression: [address] [place] [address] CT Scan Report Signed Patient: Silviano Arreola Unit #: [id number] : 1990 Age/Sex: 31 / M ADM Date: 05/12/21 Loc: ER Room/Bed: Attending Dr: Ordering Provider/Ordering MD: Emily Olmstead Date of Service: 05/12/21 Procedure(s): CT cervical spin wo con* [id number] Accession Number(s): [id number] Report Number: [id number] WS: [id number] CT CERVICAL TRAUMA TECHNIQUE: Noncontrast CT of the cervical spine with coronal and sagittal reformatted images. CLINICAL INFORMATION: L arm numbness COMPARISON: None. DLP: 671.[address] scans at [facility] use at least one of these dose optimization techniques: automated exposure control; mA and/or kV adjustment per patient size (includes targeted exams where dose is matched to clinical indication); or iterative reconstruction. FINDINGS: Straightening with slight reversal of the normal cervical lordosis. Slight anterolisthesis C2 on C3. This is unchanged since CT neck 2012. Normal craniocervical junction. Normal C1-C2 articulation. Dens is normal in appearance. Normal occipital condyles. No high-grade spinal canal narrowing. Normal C1 ring. No evidence of acute fracture or dislocation. C2-C3: Normal. C3-C4: Normal. C4-C5: Normal. C5-C6: Mild disc osteophytic ridging. Mild to moderate left bony foraminal narrowing. Right foramen is patent. Mild central canal stenosis. C6-C7: Disc osteophytic ridging. Mild bilateral bony foraminal narrowing. Moderate facet arthropathy. Mild central canal stenosis. C7-T1: No significant disc bulging. Spinal canal and foramen are patent. CT/CT cervical spin wo con* [id number] IMPRESSION: 1. Straightening with slight reversal of the normal cervical lordosis. Slight anterolisthesis C2 on C3. This is unchanged since CT neck 2012. 2. Mild to moderate left C5-6 bony foraminal narrowing. 3. Mild bilateral bony foraminal narrowing C6-7. 4. Mild central canal stenosis C5-C6 and C6-C7. 5. Findings can be followed up with MRI cervical spine. Dictated By: Eric Barron MD Signed By: Eric Barron MD Signed Date/Time: 05/12/21 1145 DD/ 1136 CT Head: Radiologist's impression: [address] [place] [address] CT Scan Report Signed Patient: Silviano Arreola Unit #: [id number] : 1990 Age/Sex: 31 / M ADM Date: 05/12/21 Loc: ER Room/Bed: Attending Dr: Ordering Provider/Ordering MD: Emily Olmstead Date of Service: 05/12/21 Procedure(s): CT head wo con* [id number] Accession Number(s): [id number] Report Number: [id number] WS: [id number] CT HEAD TECHNIQUE: Noncontrast CT of the head obtained from the skullbase to the vertex. CLINICAL INFORMATION: L arm numbness/weakness COMPARISON: None. DLP: 745.[address] scans at [facility] use at least one of these dose optimization techniques: automated exposure control; mA and/or kV adjustment per patient size (includes targeted exams where dose is matched to clinical indication); or iterative reconstruction. FINDINGS: No evidence of intracranial hemorrhage or mass effect. Ventricular system and basal cisterns are patent. No extra-axial fluid collections. No evidence of mass or mass effect. Normal kirby-white differentiation. Opacification of the right frontal sinus and frontoethmoidal recess. Opacification right ethmoid air cells and partially visualized right maxillary sinus. Mastoid air cells are well aerated. CT/CT head wo con* [id number] IMPRESSION: 1. No evidence of intracranial hemorrhage or mass effect. 2. Opacification right frontal sinus, right ethmoid air cells, and right maxillary sinus. 3. No acute intracranial findings. Dictated By: Eric Barron MD Signed By: Eric Barron MD Signed Date/Time: 05/12/21 1302 DD/ 1259 Discharge Plan Discharge Patient Disposition: Home Clinical Impression: Pain and numbness of left upper extremity Condition: Stable Prescriptions: New cyclobenzaprine 10 mg tablet 10 mg PO TID Qty: 14 RF: 0 ibuprofen 800 mg tablet 800 mg PO Q8H PRN (Reason: pain) Qty: 20 RF: 0 Medrol (Gavin) 4 mg tablets,dose pack See Rx Instructions .ROUTE .COMPLEX Qty: 21 RF: 0 Discontinued naproxen 500 mg tablet 500 mg PO BID PRN (Reason: pain) Qty: 20 RF: 0 No Action Ventolin HFA 90 mcg/actuation HFA aerosol inhaler 1 inh inhalation Q6H PRN (Reason: shortness of breath or wheezing) Qty: 6.7 RF: 0 Discharge Orders: Discharge ED (Routine); Ordered 05/12/21 Ordered By: Emily Olmstead Activity Restrictions/Additional Instructions: You need to follow-up with your primary care provider as soon as possible if symptoms do not improve over the next 48 to 36 hours. Coding Level of Care Code ED [employer] for Chg Fwd Exam Detailed Documented by User: John Newberry MD 05/15/21 21:48 HPI - Extremity Problem General: Chief complaint: Extremity Problem,Nontraumatic Stated complaint: L shoulder Time Seen by Provider: 05/12/21 10:41 PFSH ED PFSH: Medical History Intellectual disability MDD (major depressive disorder), recurrent, severe, with psychosis PTSD (post-traumatic stress disorder) Social History Smoking and tobacco status: light tobacco smoker smokeless tobacco Smokeless tobacco user: chewing tobacco Quit status (tobacco): not considering quitting Second hand smoke exposure: No Smoking risk assessment/counseling performed?: No Alcohol intake: current Alcohol intake frequency: holidays/special occasions only Desire information about alcohol rehabilitation?: No Counseling given: No Household members: spouse Marital status: Current occupational status: other Details: WAS INCARCERATED IN 2017 Current gender identity: Male Course Vital Signs: Vital signs: Vital Signs Temperature 98.1 F 05/12/21 10:36 Pulse Rate 76 05/12/21 14:04 Respiratory Rate 18 05/12/21 14:04 Blood Pressure 110/70 05/12/21 14:04 Pulse Oximetry 96 05/12/21 14:04 MDM - Extremity (Nontraumatic) MDM Narrative: Medical decision making narrative: I discussed this case with BOY Hale. I have reviewed documentation, labs, imaging. John Newberry MD Emergency Medicine Discharge Plan Discharge Patient Disposition: Home Clinical Impression: Pain and numbness of left upper extremity Condition: Stable Prescriptions: New cyclobenzaprine 10 mg tablet 10 mg PO TID Qty: 14 RF: 0 ibuprofen 800 mg tablet 800 mg PO Q8H PRN (Reason: pain) Qty: 20 RF: 0 Medrol (Gavin) 4 mg tablets,dose pack See Rx Instructions .ROUTE .COMPLEX Qty: 21 RF: 0 Discontinued naproxen 500 mg tablet 500 mg PO BID PRN (Reason: pain) Qty: 20 RF: 0 No Action Ventolin HFA 90 mcg/actuation HFA aerosol inhaler 1 inh inhalation Q6H PRN (Reason: shortness of breath or wheezing) Qty: 6.7 RF: 0 Discharge Orders: Discharge ED (Routine); Ordered 05/12/21 Ordered By: Emily Olmstead Activity Restrictions/Additional Instructions: You need to follow-up with your primary care provider as soon as possible if symptoms do not improve over the next 48 to 36 hours. Coding Level of Care Code ED [employer] for Chg Fwd Exam Detailed
--- NOTE | 2021-05-12 12:35 | CT_ITS ---
WS: [id number] CT HEAD TECHNIQUE: Noncontrast CT of the head obtained from the skullbase to the vertex. CLINICAL INFORMATION: L arm numbness/weakness COMPARISON: None. DLP: 745.[address] scans at [facility] use at least one of these dose optimization techniques: automated e xposure control; mA and/or kV adjustment per patient size (includes targeted exams where dose is matc hed to clinical indication); or iterative reconstruction. FINDINGS: No evidence of intracranial hemorrhage or mass effect. Ventricular system and basal cisterns are aparicio nt. No extra-axial fluid collections. No evidence of mass or mass effect. Normal kirby-white different iation. Opacification of the right frontal sinus and frontoethmoidal recess. Opacification right ethmoid air cells and partially visualized right maxillary sinus. Mastoid air cells are well aerated. CT/CT head wo con* [id number] IMPRESSION: 1. No evidence of intracranial hemorrhage or mass effect. 2. Opacification right frontal sinus, right ethmoid air cells, and right maxil roosevelt sinus. 3. No acute intracranial findings.
[2021-05-12 14:04] VITALS: BP 110/70; PULSE 76; RESP 18; O2SAT 96
== END 2021-05-12 14:05 | disposition home or self-care (01) ==
PROVIDERS: Emergency Provider Physician Assistant
DX: R20.0 Anesthesia of skin (principal); M79.602 Pain in left arm
CPT/HCPCS: 70450; 72125; 99282

== ENCOUNTER 2022-04-16 09:49 | Emergency (ER) | payer SELFPAY ==
[2022-04-16 10:03] VITALS: BMI 24.6
[2022-04-16] MEDS: ketorolac 30 mg/mL INJ IM (11:04)
[2022-04-16 11:10] VITALS: BP 95/66; PULSE 94; O2SAT 97
[2022-04-16 11:23] LABS: Basophils % 0.6 %; Eosinophils # 0.1 10^3/uL (0.0-0.8); Eosinophils % 1.5 %; Hematocrit 38.7 % (42.0-52.0); Hemoglobin 12.1 g/dL (11.7-16.6); Lymphocytes # 1.4 10^3/uL (0.8-4.8); Lymphocytes % 26.8 %; Mean Corpuscular HGB Conc 31.3 g/dL (30.0-36.0); Mean Corpuscular Hemoglobin 29.3 pg (28.0-34.0); Mean Corpuscular Volume 93.7 fl (80-94); Mean Platelet Volume 9.9 fL (7.4-10.4); Monocytes # 0.3 10^3/uL (0.2-0.9); Monocytes % 5.5 %; Neutrophils # 3.44 10^3/uL (1.8-7.7); Neutrophils % 65.4 %; Nucleated Red Blood Cells % 0 %; Platelet Count 305 10^3/cmm (130-400); Red Blood Count 4.13 10^6/uL (4.1-5.3); Red Cell Distribution Width 13.9 % (12.1-15.1); White Blood Count 5.3 10^3/uL (4.0-10.0)
[2022-04-16 11:37] VITALS: PULSE 50; O2SAT 96
[2022-04-16 11:45] LABS: Alanine Aminotransferase 14 U/L (0-41); Albumin Level 4.1 g/dL (3.5-5.2); Alkaline Phosphatase 90 U/L (40-130); Aspartate Amino Transferase 16 U/L (0-40); Blood Urea Nitrogen 13 mg/dL (6-20); Calcium 9.4 mg/dL (8.5-10.5); Carbon Dioxide 27 mmol/L (22-29); Chloride 104 mmol/L (98-107); Globulin 2.8 g/dL (1.3-4.6); Glomerular Filtration Rate 113.5 mL/min (90-130); Glucose 99 mg/dL (65-115); Osmolality Calculated 290 mOsm/kg (285-295); Sodium 140 mmol/L (136-145); Total Bilirubin 0.8 mg/dL (0.15-1.2); Total Protein 6.9 g/dL (6.6-8.7)
[2022-04-16 11:46] LABS: Add Urine Culture? No; Add Urine Microscopic? YES; Bacteria Urine TRACE /hpf; Bilirubin Urine Neg (Negative); Blood Urine Neg (Negative); Glucose Urine UA Norm (Normal); Ketones Urine 1+ (Negative); Leukocyte Esterase Urine Negative (Negative); Nitrate Urine Negative (Negative); Protein Urine Trace (Negative); RBC Urine 0-4 /hpf (0-2); Specific Gravity, Urine 1.025 (1.005-1.030); Squamous Epithelial Cell Urine 0-4 /hpf (0-5); Urine Appearance Clear (CLEAR); Urine Color Yellow (Yellow); Urobilinogen Urine Norm (Negative); pH Urine 5 (5-7)
--- NOTE | 2022-04-16 12:02 | CT_ITS ---
WS: [id number] CT ABDOMEN PELVIS TECHNIQUE: Noncontrast CT of the abdomen and pelvis with coronal and sagittal reformatted images. CLINICAL INFORMATION: flank pain COMPARISON: None. DLP: 409.[address] scans at [facility] use at least one of these dose optimization techniques: automated e xposure control; mA and/or kV adjustment per patient size (includes targeted exams where dose is matc hed to clinical indication); or iterative reconstruction. FINDINGS: Noncontrast liver is normal. Gallbladder is contracted. Small esophageal hiatal hernia. Normal spleen . Noncontrast pancreas is normal. Adrenal glands are normal. Tiny nonobstructing calyceal tip calculi . No obstructing renal or ureteral calculi. Lung bases are well aerated. Adrenal glands are normal. Normal caliber abdominal aorta. Prostate anatoly uring 3.8 cm. Sigmoid diverticulosis. No evidence of acute diverticulitis. Normal appendix in the RIG HT lower quadrant. No evidence of acute appendicitis. Normal lumbar spine. CT/CT abdomen pelvis wo con [id number] IMPRESSION: 1. No acute findings in the abdomen or pelvis. 2. No obstructing renal or ureteral calculi. No hydronephrosis. 3. Normal appendix in the RIGHT lower quadrant. 4. Small esophageal hiatal hernia. 5. Enlarged prostate measuring 3.8 cm.Correlation PSA. 6. Sigmoid diverticulosis.
[2022-04-16 12:47] VITALS: BP 132/95; PULSE 54; O2SAT 100
[2022-04-16 13:13] VITALS: BP 131/51; O2SAT 99
--- NOTE | 2022-04-16 13:18 | ED_ITS ---
HPI - Male Genitourinary General: Chief complaint: Urogenital-Male Stated complaint: rash on stomach Time Seen by Provider: 04/16/22 10:05 History of Present Illness: 32 yo male patient present to ER rash to his abdomen that started after picking and carrying multiple walnuts. Pt states he also has been peeing blood. Pt denies any abd pain but does c/o of some flank pain. Pt denies any burning with urination denies any fever. Denies any chest pain or SOB Associated symptoms: Deny dysuria, nausea or vomiting Review of Systems Const: Denies: fever(s), chills, body aches, change in appetite, change in weight, fatigue, malaise or diaphoresis Eyes: Denies: change in vision, blurry vision, blind spots, photophobia, eye discomfort, eye discharge, eye redness, floaters or seeing flashes ENMT: Denies: throat pain, uvular edema, enlarged tonsils, odynophagia, hoarseness, mouth pain, swelling of lips/tongue, oral sores, bleeding gums, dental pain, dry mouth, ear or mastoid pain, ear discharge, change in hearing, tinnitus, disequilibrium, nasal discharge, nasal congestion, post nasal drip or sinus pain Card: Denies: chest pain, palpitations, irregular heart rhythm, edema, s welling of feet/ankles, lightheadedness, syncope, pre-syncope, dyspnea on exertion, orthopnea, leg pain with exertion or acrocyanosis Resp: Denies: dyspnea, productive cough, non-productive cough, wheezing, stridor, pain on inspiration, change in phlegm color, hemoptysis or chest congestion GI: Denies: abdominal pain, nausea, vomiting, hematemesis, dysphagia, diarrhea, constipation, GI cramping, change in bowel habits or rectal pain : Denies: dysuria, urinary frequency, urinary urgency or urinary hesitancy Musc: Denies: neck pain, back pain, extremity pain, extremity swelling, joint pain, joint swelling, joint redness, joint warmth or deformity Skin/Breast: Denies: pruritus, erythema, sores, new lesions, changes in skin color or dry skin Neuro: Denies: headache(s), numbness in extremities, weakness in extremities, sensory changes, lack of coordination, difficulty walking, frequent falls, dizziness, vertigo, confusion, behavioral changes, Slurred speech present, difficulty communicating thoughts or seizure-like activity Psych: Denies: anxiety, depression, suicidal ideation or homicidal ideation Endo: Denies: polyuria, polydipsia, tired all the time, cold intolerance, excessive sweating, flushing, hot flashes or heat intolerance [place]/Lymph: Denies: easy bruising, easy bleeding, petechiae, purpura, enlarged lymph nodes or tender lymph nodes All/Imm: Denies: urticaria, throat swelling, tongue swelling, facial swelling, acute wheezing or itchy eyes PFSH ED PFSH: Medical History Intellectual disability MDD (major depressive disorder), recurrent, severe, with psychosis PTSD (post-traumatic stress disorder) Social History Smoking and tobacco status: light tobacco smoker smokeless tobacco Smokeless t obacco user: chewing tobacco Quit status (tobacco): not considering quitting Second hand smoke exposure: No Smoking risk assessment/counseling performed?: No Alcohol intake: current Alcohol intake frequency: holidays/special occasions only Desire information about alcohol rehabilitation?: No Counseling given: No Household members: spouse Marital status: Current occupational status: other Details: WAS INCARCERATED IN 2017 Current gender identity: Male Physical Exam Const: COMMON NORMALS: no acute distress, patient oriented x3, healthy appearing, alert and well nourished GENERAL APPEARANCE: cooperative, comfortable, well kempt and well developed; not ill appearing ORIENTATION/CONSCIOUSNESS: Yes awake, Yes oriented to person, Yes oriented to place and Yes oriented to time HENMT: COMMON NORMALS: normocephalic, atraumatic, hearing grossly normal bilaterally, external ears normal, EAC's normal, TM's normal bilaterally, Normal external nose present, Normal nasal mucous membranes and turbinates present and moist oral mucous membranes HEAD & SCALP: normal to inspection, normocephalic and atraumatic FACE & SINUS: normal facial exam, sinuses nontender and face symmetric NOSE: Normal external nose present, Normal nares present, Normal n franky mucous membranes and turbinates present, No nasal discharge present and Abnormal external nose present EXTERNAL EAR: Yes external ears normal and Yes mastoids normal EXTERNAL AUDITORY CANAL: EAC's normal TYMPANIC MEMBRANE: TM's normal bilaterally MOUTH: Normal oral and palatal mucosa present, lip normal, tongue normal and Normal salivary glands and ducts present THROAT: no uvular edema Eye: COMMON NORMALS: Equal, round and reactive pupils present, EOMs intact bilaterally, conjunctivae normal and no scleral icterus GENERAL EYE: appearance normal, both eyes and all related structures EYELID: eyelids normal CONJUNCTIVA: Yes conjunctivae normal SCLERA: sclerae normal CORNEA: Yes corneas normal PUPIL: Yes Equal, round and reactive pupils p resent Neck/C-Spine: COMMON NORMALS: full ROM, no lymphadenopathy, supple, no meningeal signs, no JVD and Thyroid normal GENERAL: Yes normal visual inspection and Yes trachea midline THYROID: Thyroid normal CERVICAL SPINE: Yes cervical ROM normal Lymph: LYMPHATIC: no lymphadenopathy noted and no lymphedema noted Chest: COMMONS NORMALS: normal inspection of the chest and normal palpation of entire chest wall Resp: COMMON NORMALS: normal respiratory effort, No retractions, No use of accessory muscles and clear to auscultation bilaterally EFFORT & INSPECTION: Yes able to speak in complete sentences and Yes symmetric chest movement AUSCULTATION: clear to auscultation bilaterally Cardio: COMMON NORMALS: no JVD, regular rate and regular rhythm RATE: regular rate RHYTHM: regular rhythm GI: COMMON NORMALS: Normal to inspection, nondistended, normoactive bowel sounds present, Soft to palpation, non-tender, No hepatosplenomegaly present, no masses and no bruits INSPECTION: Yes normal to inspection AUSCULTATION: Yes normoactive bowel sounds PALPATION: Yes Soft to palpation and Yes No hepatosplenomegaly present PERCUSSION: normal to percussion RECTAL EXAM: Yes deferred : COMMON NORMALS: Yes no CVA tenderness BLADDER/KIDNEY EXAM: Yes no CVA tenderness Back/Pelvis: COMMON NORMALS: no CVA tenderness, thoracic and lumbar spine normal to inspection, no thoracic nor lumbar tenderness, thoraco-lumbar ROM normal and straight leg raise negative bilaterally THORACIC SPINE/UPPER BACK: Yes normal to inspection LUMBAR SPINE/LOWER BACK: Yes normal to inspection Extremity: COMMON NORMALS: normal to inspection, full ROM and capillary refill normal GENERAL: Yes normal exam except as noted Neuro: COMMON NORMALS: patient oriented x3, CN's II-XII intact bilaterally, moves all extremities, no focal motor deficits, no sensory deficits noted and gait normal SENSORIUM/ORIENTATION: Yes alert, Yes oriented to person, Yes oriented to place and Yes oriented to time MENINGEAL SIGNS: Yes no meningeal signs CRANIAL NERVES: Yes CN normal except as noted SPEECH: speech normal GAIT: Yes Normal gait present SENSORY EXAM: Yes extremities MOTOR EXAM: 5/5 motor strength present throughout Psych: COMMON NORMALS: mental status grossly normal, Normal thought process present, cooperative, normal affect, speech normal, activity/motor behavior normal, denies hallucinations, denies homicidal ideation and denies suicidal ideation APPEARANCE: Yes grossly normal and Yes well kempt ATTITUDE: Yes calm ACTIVITY/MOTOR BEHAVIOR: Yes appropriate eye contact SPEECH: Yes normal speech THOUGHT PROCESS: Normal thought process present THOUGHT CONTENT: Yes Normal thought content present ATTENTION/CONCENTRATION: Yes a ttention grossly intact MEMORY/COGNITION: Yes memory grossly intact INSIGHT: Good insight present (Psych) JUDGEMENT: Good judgement present (Psych) Skin: COMMON NORMALS: no rashes or lesions noted, no wounds, turgor normal, no jaundice, no petechiae and no mottling GENERAL SKIN EXAM: no rashes or lesions noted and turgor normal Course Vital Signs: Vital signs: Vital Signs Pulse Rate 54 L 04/16/22 12:47 Blood Pressure 131/51 04/16/22 13:13 Pulse Oximetry 99 04/16/22 13:13 Oxygen Delivery Me thod 04/16/22 13:13 MDM - Male Medical Decision Making Patient is well appearing non toxic and in no acute distress. 32 yo male patient present to ER rash to his abdomen that started after picking and carrying multiple walnuts. Pt states he also has been peeing blood. Pt denies any abd pain but does c/o of some flank pain. Pt denies any burning with urination denies any fever. Denies any chest pain or SOB Pt does have an erythemic rash to his abdomen that crosses midline. These findings are c/w contact dermatitis likely secondary to walnuts. Will prescribed hydrocortisone cream for this. Pt does have hematuria CT abd/pelvis reveals an enlarged prostate. I will have patient follow up with PCP for exam and recheck of urine. Abd is soft and non tender. pt is a febrile Lab Data : 04/16/22 11:19 04/16/22 11:19 Radiology Impressions Abdomen/Pelvis CT 04/16/22 12:02 IMPRESSION: 1. No acute findings in the abdomen or pelvis. 2. No obstructing renal or ureteral calculi. No hydronephrosis. 3. Normal appendix in the RIGHT lower quadrant. 4. Small esophageal hiatal hernia. 5. Enlarged prostate measuring 3.8 cm.Correlation PSA. 6. Sigmoid diverticulosis. Laboratory Results WBC 5.3 10^3/uL (4.0-10.0) 04/16/22 11:19 RBC 4.13 10^6/uL (4.1-5.3) 04/16/22 11:19 Hgb 12.1 g/dL (11.7-16.6) 04/16/22 11:19 Hct 38.7 % (42.0-52.0) L 04/16/22 11:19 MCV 93.7 fl (80-94) 04/16/22 11:19 MCH 29.3 pg (28.0-34.0) 04/16/22 11:19 MCHC 31.3 g/dL (30.0-36.0) 04/16/22 11:19 RDW 13.9 % (12.1-15.1) 04/16/22 11:19 Plt Count 305 10^3/cmm (130-400) 04/16/22 11:19 MPV 9.9 fL (7.4-10.4) 04/16/22 11:19 Neut % (Auto) 65.4 % 04/16/22 11:19 Lymph % (Auto) 26.8 % 04/16/22 11:19 [place] % (Auto) 5.5 % 04/16/22 11:19 Eos % (Auto) 1.5 % 04/16/22 11:19 Baso % (Auto) 0.6 % 04/16/22 11:19 Neut # (Auto) 3.44 10^3/uL (1.8-7.7) 04/16/22 11:19 Lymph # (Auto) 1.4 10^3/uL (0.8-4.8) 04/16/22 11:19 [place] # (Auto) 0.3 10^3/uL (0.2-0.9) 04/16/22 11:19 Eos # (Auto) 0.1 10^3/uL (0.0-0.8) 04/16/22 11:19 Baso # (Auto) 0.0 10^3/uL (0.0-0.1) 04/16/22 11:19 Nucleated RBC % (auto) 0 % 04/16/22 11:19 Nucleated RBCs # 0.0 /100WBC 04/16/22 11:19 Sodium 140 mmol/L (136-145) 04/16/22 11:19 Potassium 4.0 mmol/L (3.5-5.1) 04/16/22 11:19 Chloride 104 mmol/L (98-107) 04/16/22 11:19 Carbon Dioxide 27 mmol/L (22-29) 04/16/22 11:19 Anion Gap 13.0 (5-19) 04/16/22 11:19 BUN 13 mg/dL (6-20) 04/16/22 11:19 Creatinine 0.8 mg/dL (0.7-1.2) 04/16/22 11:19 GFR Calculation 113.5 mL/min (90-130) 04/16/22 11:19 Glucose 99 mg/dL (65-115) 04/16/22 11:19 Calculated Osmolality 290 mOsm/kg (285-295) 04/16/22 11:19 Calcium 9.4 mg/dL (8.5-10.5) 04/16/22 11:19 Total Bilirubin 0.8 mg/dL (0.15-1.2) 04/16/22 11:19 AST 16 U/L (0-40) 04/16/22 11:19 ALT 14 U/L (0-41) 04/16/22 11:19 Alkaline Phosphatase 90 U/L (40-130) 04/16/22 11:19 Total Protein 6.9 g/dL (6.6-8.7) 04/16/22 11:19 Albumin 4.1 g/dL (3.5-5.2) 04/16/22 11:19 Globulin 2.8 g/dL (1.3-4.6) 04/16/22 11:19 Urine Color Yellow (Yellow) 04/16/22 11:08 Urine Appearance Clear (CLEAR) 04/16/22 11:08 Urine pH 5 (5-7) 04/16/22 11:08 Ur Specific [place] 1.025 (1.005-1.030) 04/16/22 11:08 Urine Protein Trace (Negative) 04/16/22 11:08 Urine Glucose (UA) Norm (Normal) 04/16/22 11:08 Urine Ketones 1+ (Negative) H 04/16/22 11:08 Urine Blood Neg (Negative) 04/16/22 11:08 Urine Nitrate Negative (Negative) 04/16/22 11:08 Urine Bilirubin Neg (Negative) 04/16/22 11:08 Urine Urobilinogen Norm mg/dL (Negative) 04/16/22 11:08 Ur Leukocyte Esterase Negative (Negative) 04/16/22 11:08 Urine RBC 0-4 /hpf (0-2) H 04/16/22 11:08 Urine WBC 5-10 /hpf (0-5) H 04/16/22 11:08 Ur Squamous Epith Cells 0-4 /hpf (0-5) H 04/16/22 11:08 Amorphous Sediment Not Reportable 04/16/22 11:08 Urine Bacteria Trace /hpf (NONE) 04/16/22 11:08 Discharge Plan Discharge Condition: Stable Prescriptions: No Action Tylenol Ex Str Rapid Release 500 mg Tablet 1,000 mg PO Q6H PRN (Reason: Pain) Coding Level of Care Code ED Site Director for [facility] Devang
== END 2022-04-16 14:10 | disposition home or self-care (01) ==
PROVIDERS: Emergency Provider Registered Nurse
DX: R21 Rash and other nonspecific skin eruption (principal); F17.220 Nicotine dependence, chewing tobacco, uncomplicated
CPT/HCPCS: 36415; 74176; 80053; 81001; 85025; 96372; 99285; J1885

== ENCOUNTER → 2023-06-24 17:57 | Outpatient (BNVA) | payer MEDICAID, SELFPAY | PROVIDERS: Visit Provider Nurse Practitioner | DX: M25.572 Pain in left ankle and joints of left foot (principal) | CPT/HCPCS: 73610 ==

== ENCOUNTER → 2024-05-30 14:09 | Outpatient (BNVA) | payer OTHER, SELFPAY | PROVIDERS: PCP Family Medicine; Visit Provider Nurse Practitioner Family | DX: R50.9 Fever, unspecified (principal) | CPT/HCPCS: 87400; 87426 ==

== ENCOUNTER 2024-09-14 13:06 | Outpatient (CLI) | payer MEDICAID, SELFPAY ==
--- NOTE | 2024-09-14 13:14 | XR_ITS ---
WS: [id number] Right hip, AP and frog-leg views, 09/14/2024 Clinical Data: M25.551 - Pain in right hip Comparison: Sacrum and coccyx, 07/05/2012 Findings: No fractures or dislocations are seen. The hip joint is intact. The soft tissues are not remarkable. The adjacent pelvis is normal. XR/XR hip RT 2-3V wo/w pel* [id number] Impression: Negative right hip.
== END 2024-09-14 13:07 | disposition home or self-care (01) ==
PROVIDERS: PCP Nurse Practitioner Family; Visit Provider Family Medicine
DX: M25.551 Pain in right hip (principal)
CPT/HCPCS: 73502